=== PATIENT | male | born 1945 | race Caucasian/White ===

== ENCOUNTER 2017-01-24 14:40 | Inpatient (IN) | payer MEDICARE, BC ==
--- NOTE | 2017-01-24 15:25 | CT ---
CT BRAIN PERFORMED WITHOUT CONTRAST ENHANCEMENT: History: Altered mental status. FINDINGS: There is marked generalized ventricular and sulcal prominence. There is decreased attenuation of the periventricular white matter. There are no signs of intracerebral hemorrhage or extraaxial fluid michelle ections. Mastoid air cells are clear. There is some mild ethmoid air cell mucosal disease. IMPRESSION: No acute intracranial abnormalities. POS: [facility]
[2017-01-24 15:39] LABS: #Eosinphils 0.1 thou/uL (0.0-0.7); #Lymphocytes 1.6 thou/uL (1.20-3.40); #Monocytes 0.3 thou/uL (0.11-0.59); #Neutrophils 2.9 thou/uL (1.40-6.50); %Basophils 0.5 % (0.0-1.0); %Eosinophils 1.8 % (0.0-10.0); %Lymphocytes 31.9 % (21.0-51.0); Hematocrit 49.2 % (42.0-52.0); Mean Platelet Volume 7.7 fL (7.4-10.4); Red Blood Cell (RBC) Count 4.99 mill/uL (4.70-6.10); White Blood Cell (WBC) Count 4.9 thou/uL (4.8-10.8)
[2017-01-24 15:50] LABS: Prothrombin Time 20.2 SEC (12.0-14.7)
[2017-01-24 15:51] LABS: PTT 35.5 SEC (22.9-36.1)
[2017-01-24 15:59] LABS: ALT (SGPT) 22 U/L (8-55); AST (SGOT) 22 U/L (5-34); Alkaline Phosphatase 53 U/L (40-150); Anion Gap 13 mmol/L (10-20); BUN (Urea Nitrogen) 13 mg/dL (8.4-25.7); Bilirubin, Total 1.4 mg/dL (0.2-1.2); CK (CPK) 40 U/L (30-200); Calc. Creatinine Clearance 0 mL/min (70-130); Calcium 9.3 mg/dL (7.8-10.44); Carbon Dioxide 21 mmol/L (23-31); Chloride 106 mmol/L (98-107); Estimated GFR-MDRD Greater than 90; Globulin 2.7 g/dL (2.4-3.5)
[2017-01-24 16:03] LABS: Troponin I Less than 0.010 ng/mL (< 0.028)
[2017-01-24] MEDS ORDERED: Ondansetron HCl/PF 4 MG/2 ML Vial IVP PRN (20:01)
[2017-01-24] MEDS ORDERED: Acetaminophen 325 MG TAB PO PRN ×2 (20:01→20:24)
[2017-01-24] MEDS ORDERED: Sodium Chloride 0.9% 1,000 ML IV SCH (20:01)
[2017-01-24] MEDS ORDERED: Ondansetron ODT 4 MG TAB SL PRN (20:01)
[2017-01-24] MEDS ORDERED: Dextrose 50% Abboject 50 ML SYRINGE SLOW IVP PRN (20:24)
[2017-01-24] MEDS ORDERED: Dextrose 5% in Water 1,000 ML IV PRN (20:24)
[2017-01-24] MEDS ORDERED: Mag-Al 1200 mg/1200 mg/30 ML UDCUP PO PRN (20:24)
[2017-01-24] MEDS ORDERED: HumaLOG 300 UNITS/3 ML VIAL SC PRN (20:24)
[2017-01-24] MEDS ORDERED: Warfarin Sodium 5 MG TAB PO SCH (20:45)
[2017-01-24 21:00] VITALS: BMI 29.3
[2017-01-24] MEDS ORDERED: INSULIN DETEMIR SC SCH (21:00)
[2017-01-24] MEDS ORDERED: ADMIXTURE FEE SC SCH (21:00)
--- NOTE | 2017-01-24 21:09 | HP ---
PRIMARY CARE PHYSICIAN: Ha Hsu MD NEUROLOGIST: Kurtis Hernandez MD CHIEF COMPLAINT: Slurred speech. HISTORY OF PRESENT ILLNESS: Mr. Hernandez is a pleasant 71-year-old gentleman who was brought in by his due to slurred speech and dysarthria. The patient is , but however, he does not live wi th his . She lives close by and usually checks on him just once a day. The history is taken monique sudhir from the patient's that the patient has some degree of confusion in addition to the new d ysarthria. She says that he was found today by his stepdaughter and she noticed that he was not talk ing clearly, this was around 12:30 this afternoon. The day prior, he was in his usual state. She sa ys that about a month ago, she was concerned about him and took him to see his primary care physician because he seemed to be confused. He was repeating the same thing over and over again, he thought t hat he was confused about the holiday coming up and for this reason. She took him to see Dr. Hsu . He had some lab work on him and noticed that his INR was 1 when he should be on Coumadin daily for a hereditary clotting disorder that he has. For this reason, he was sent to have an MRI and then se nt to see Dr. Hernandez. According to the patient's , the MRI showed numerous infarcts and he was then sent to have a carotid Doppler, which showed some plaque, but no significant lesions. During th is time, he has continued to remain confused off and on. She believes that he has not been taking hi s medications and that is why his INR was subtherapeutic and on today, she noticed the slurred speech was noted, which is a new finding. He has had no motor weakness or deficits during this occasion ov er the past month. Otherwise, no additional history is obtainable. REVIEW OF SYSTEMS: Also unobtainable due to the patient's dysarthria and unreliable history. 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 PAST SURGICAL HISTORY: Significant for left ankle surgery as well as right knee surgery. SOCIAL HISTORY: He is , but he does not live with his . He is a former smoker, denies an y alcohol use. FAMILY HISTORY: Significant for coronary artery disease in his father and he says his father has the blood-clotting disorder as well as 4/5 of his siblings. ALLERGIES: PENICILLIN. CURRENT MEDICATIONS: Aspirin 81 mg daily, metformin 850 mg t.i.d., pravastatin 20 mg daily, vitamin D3 of 5000 units daily, Jantoven 5 mg daily. PHYSICAL EXAMINATION: GENERAL: He is alert and oriented. VITAL SIGNS: His blood pressure is 131/80, heart rate 96, respiratory rate of 18. He is afebrile. HEENT: Pupils are equal, round, and reactive. Extraocular muscles are intact. Sclerae are anicteri c. Throat, there is no erythema, although he has quite a bit of whitish coating on his tongue. NECK: There is no adenopathy, no bruits. LUNGS: Clear. There is no wheezing, no rales. CARDIOVASCULAR: He has a normal S1 and S2. I do not appreciate S3 or S4. No murmurs, clicks, no ru bs. ABDOMEN: Soft, it is nontender, nondistended. Positive for bowel sounds. No rebound, no guarding. EXTREMITIES: There is no edema. NEUROLOGIC: He appears to have just a very mild right facial droop. He has dysarthria, his speech i s barely intelligible. His muscle strength is 5/5 in both his upper and lower extremities with sligh t weakness in the left lower extremity and he has muscle atrophy in the left lower extremity from abo ut the calf down. LABORATORY AND DIAGNOSTIC DATA: CT scan of the brain was negative for any acute abnormalities. His sodium was 136, potassium 3.9, chloride is 106, CO2 is 21, BUN of 13, creatinine 0.8, glucose is 93. White blood cell count 4.9, hemoglobin 16.1, hematocrit is 49.2, platelet count is 192. INR was 1.7 . ASSESSMENT AND PLAN: 1. This is a 71-year-old gentleman who presents to the emergency room with dysarthria, this was note d around 12:30, it is unclear exactly when it started. It persists now, which is about 1900 hours wh en I am seeing the patient. This likely represents an acute infarct, however, we will need an MRI in order to determine this. We will also consult his neurologist for further recommendations. He has already had a carotid Doppler recently; therefore, this will not be repeated; however, we will get an echocardiogram. We will monitor him on telemetry to see if he has any atrial fibrillation. 2. History of a clotting disorder. He has a subtherapeutic INR. We will restart his Coumadin and t itrate. Due to some of the new mental confusion and concerned that the patient is noncompliant with his medications. We will consult case management to see if home health would be an option with bill nichole to helping the patient with his home medications. 3. For diabetes mellitus, he is on metformin. We will go ahead and hold the metformin for now and p lace him on a sliding scale as well as long-acting insulin until his workup is complete. Otherwise, we will also start him on deep venous thrombosis and gastrointestinal prophylaxis.
[2017-01-24] MEDS: Atorvastatin Calcium 20 MG TAB PO SCH (22:15)
[2017-01-24] MEDS: Famotidine 20 MG TAB PO SCH (22:15)
[2017-01-25 05:54] LABS: #Eosinphils 0.1 thou/uL (0.0-0.7); #Lymphocytes 1.5 thou/uL (1.20-3.40); #Monocytes 0.5 thou/uL (0.11-0.59); #Neutrophils 6.1 thou/uL (1.40-6.50); %Basophils 0.3 % (0.0-1.0); %Eosinophils 0.8 % (0.0-10.0); %Lymphocytes 18.5 % (21.0-51.0); %Monocytes 6.1 % (0.0-10.0); Hematocrit 45.6 % (42.0-52.0); Mean Platelet Volume 7.5 fL (7.4-10.4); Prothrombin Time 22.8 SEC (12.0-14.7); Red Blood Cell (RBC) Count 4.61 mill/uL (4.70-6.10); White Blood Cell (WBC) Count 8.2 thou/uL (4.8-10.8)
[2017-01-25 06:00] LABS: Anion Gap 11 mmol/L (10-20); BUN (Urea Nitrogen) 15 mg/dL (8.4-25.7); Calc. Creatinine Clearance 101 mL/min (70-130); Calcium 8.9 mg/dL (7.8-10.44); Carbon Dioxide 23 mmol/L (23-31); Chloride 107 mmol/L (98-107); Cholesterol 161 mg/dl (< 200 Desired); Estimated GFR-MDRD Greater than 90; LDL Cholesterol, Calculated 106 mg/dL
[2017-01-25] MEDS ORDERED: Aspirin 81 mg Enteric Coated Tablet PO SCH ×2 (09:00→11:45)
[2017-01-25] MEDS ORDERED: FLU VACC TS2017-18 (>65YR) 0.5 ML SYRINGE IM ONE (09:00)
[2017-01-25] MEDS: Famotidine 20 MG TAB PO SCH ×2 (09:16→21:32)
[2017-01-25] MEDS ORDERED: Famotidine 20 MG TAB PO SCH (11:45)
--- NOTE | 2017-01-25 12:47 | PDOC.PN ---
- Subjective Encounter Start Date: 01/25/17 Encounter Start Time: 12:45 Mr. Hernandez was seen today in follow-up of TIA vs. CVA. He does not have any new complaints. He continues to have dysarthria, and the facial droop ( right) is more pronounced today. - Objective Resuscitation Status: Resuscitation Status FULL:Full Resuscitation MAR Reviewed: Yes Vital Signs & Weight: Vital Signs (12 hours) Temp Pulse Pulse Pulse Resp BP BP 01/25/17 11:30 98.4 F 59 L 16 01/25/17 09:40 61 78 141/71 H 116/83 01/25/17 07:30 98.9 F 82 16 01/25/17 07:27 98.6 F 59 L 16 01/25/17 04:22 98.6 F 59 L 16 BP Pulse Ox 01/25/17 11:30 106/66 98 01/25/17 09:40 01/25/17 07:30 126/77 97 01/25/17 07:27 01/25/17 04:22 132/78 93 L Weight Weight 183 lb 12.8 oz I&O: 01/24/17 01/25/17 01/26/17 06:59 06:59 06:59 Intake Total 198 Balance 198 Result Diagrams: 01/25/17 05:25 01/25/17 05:25 Additional Labs: Accuchecks 01/25/17 01/25/17 01/24/17 10:51 06:08 21:42 POC Glucose 92 101 94 Phys Exam - Physical Examination HEENT: PERRLA Respiratory: no wheezing, no rales, no rhonchi, clear to auscultation bilateral Cardiovascular: RRR, no significant murmur Gastrointestinal: soft, non-tender, positive bowel sounds Musculoskeletal: no edema Dysarthria, and right facial droop Dx/Plan (1) Dysarthria Code(s): R47.1 - DYSARTHRIA AND ANARTHRIA Status: Acute (2) Facial droop Code(s): R29.810 - FACIAL WEAKNESS Status: Acute (3) Diabetes mellitus type 2 in nonobese Code(s): E11.9 - TYPE 2 DIABETES MELLITUS WITHOUT COMPLICATIONS Status: Acute (4) Subtherapeutic anticoagulation Code(s): Z51.81 - ENCOUNTER FOR THERAPEUTIC DRUG LEVEL MONITORING; Z79.01 - [place] (CURRENT) USE OF ANTICOAGULANTS Status: Acute - Plan * Dysarthria and facial droop- awaiting MRI results * Dyslipidemia- mild- but will add Lipitor * INR is now 1.9- continue coumadin, and will monitor the trend and adjust as needed * DM- blood glucose is controlled * Await further evaluation from Dr. Hernandez.
--- NOTE | 2017-01-25 14:03 | MRI ---
BRAIN MRI WITHOUT CONTRAST: 01/25/2017 HISTORY: Slurred speech and altered mental status. COMPARISON: None. TECHNIQUE: Multiplanar, multisequence MR imaging of the brain is obtained without contrast. FINDINGS: There is an area of restricted diffusion, consistent with acute infarction, involving the periventric ular and deep white matter, adjacent to the mid body of the left lateral ventricle, measuring up to 1 .7 x 2 cm. The gradient echo imaging demonstrates no evidence for intracranial hemorrhage. There is extensive periventricular deep and subcortical white matter T2 and FLAIR hyperintensity, evidence of severe small vessel disease. The arterial flow voids at the axial level of the skull base appear patent. The imaged paranasal sin uses/mastoid air cells are grossly unremarkable. The orbits and globes demonstrate a grossly unremar kable appearance. There is moderate diffuse cerebral volume loss. IMPRESSION: Cerebral volume loss and severe small vessel disease with an area of acute infarction involving the l eft periventricular and deep white matter in the frontal region, as above. No associated intracrania l hemorrhage. POS: [facility]
[2017-01-25] MEDS: Warfarin Sodium 5 MG TAB PO SCH (17:48)
[2017-01-25] MEDS: Atorvastatin Calcium 20 MG TAB PO SCH (21:31)
[2017-01-25] MEDS: ADMIXTURE FEE SC SCH ×2 (21:32→21:44)
[2017-01-25] MEDS: INSULIN DETEMIR SC SCH ×2 (21:32→21:44)
--- NOTE | 2017-01-25 23:13 | CON ---
DATE OF CONSULTATION: 01/25/2017 REFERRING PHYSICIAN: Dr. Walker Heredia. REASON FOR CONSULTATION: Dysarthria and confusion. HISTORY OF PRESENT ILLNESS: Mr. Hernandez is a pleasant 71-year-old male who has been concern ed for evaluation of dysarthria. History is obtained from patient's who was present at bedside. reports that she had went to go check on him yesterday and he was noted to have slurring of hi s speech. He was also noted to have right-sided facial droop. He does have baseline confusion from prior stroke; however, the slurring of the speech and right facial droop was new. He has a history o f hereditary clotting disorder, for which he is supposed to be on Coumadin. feels that he may n ot be compliant with medication as his level has been going up and down. PAST MEDICAL HISTORY: Significant for hypertension, hyperlipidemia, prior history of stroke, heredit lesley blood clotting disorder, history of diverticulosis, polio, diabetes, obstructive sleep apnea. PAST SURGICAL HISTORY: Significant for left ankle surgery and right knee surgery. SOCIAL HISTORY: He is a former smoker. He denies alcohol use or illicit drug use. He is , b ut lives alone. FAMILY HISTORY: Significant for coronary artery disease in his father as well as blood clotting diso rder. CURRENT MEDICATIONS: Please review MAR. ALLERGIES: Include PENICILLIN. REVIEW OF SYSTEMS: As mentioned in the HPI, otherwise negative. PHYSICAL EXAMINATION: VITAL SIGNS: Blood pressure of 114/58, pulse of 61, temperature of 98.4, respirations of 16, O2 sats of 97% on room air. GENERAL: Well-developed, well-nourished male in no apparent distress. RESPIRATORY: Clear to auscultation bilaterally. CARDIOVASCULAR: Regular rate and rhythm. NEUROLOGIC: Mental status: The patient is awake, alert, oriented x2. Speech and language, mildly d ysarthric speech noted. There is some expressive aphasia noted. Cranial nerves: Pupils are 3 mm an d reactive. Visual rangel are intact. External muscle movements are intact. No nystagmus noted. N o ptosis noted. There is a right facial droop noted. Tongue and uvula are midline. Motor exam show ed normal tone and bulk with 5/5 strength in both upper and lower extremities. Sensory: Sensation i s intact and symmetric. Deep tendon reflexes 2+ reflexes in both upper and lower extremities. Vinnie ski: Plantar responses flexion bilaterally. Coordination intact to [id number] and finger ta pping bilaterally. LABORATORY DATA: Reviewed, which included CBC, coag panel, CMP, lipid profile, CPK, CK-MB, troponin, which is significant for PT of 20.2, INR 1.7 on arrival. Total cholesterol 161, LDL of 106, triglyc erides of 136, HDL 28, otherwise unremarkable. IMAGING STUDIES: MRI brain without contrast was reviewed, which showed acute left periventricular an d deep white matter in the region of the frontal lobe. Recently carotid Dopplers was done on 017, which showed no hemodynamically significant stenosis. Echocardiogram results are pending. IMPRESSION: 1. Acute left middle cerebral artery distribution ischemic infarct. 2. Hypertension. 3. Diabetes. 4. Hyperlipidemia. 5. Hereditary clotting disorder. ASSESSMENT AND PLAN: Mr. Hernandez is a pleasant 71-year-old male who presented with the epis ode of dysarthria and confusion. He is found to have acute left middle cerebral artery distribution ischemic infarct. At this time, I have advised him to continue him on aspirin 81 mg daily along with Coumadin with therapeutic INR with a goal of 2.5-3. Continue PT, OT, speech therapy. If the patien t is okay from rehabilitation perspective, he is okay to be discharged [facility]. Thank you for your consultation.
[2017-01-26 05:45] LABS: Prothrombin Time 26.7 SEC (12.0-14.7)
[2017-01-26] MEDS: Aspirin 81 mg Enteric Coated Tablet PO SCH (09:01)
[2017-01-26] MEDS: Famotidine 20 MG TAB PO SCH ×2 (09:01→21:15)
--- NOTE | 2017-01-26 14:27 | PDOC.PN ---
- Subjective Encounter Start Date: 01/26/17 Encounter Start Time: 14:25 Mr. Hernandez was seen today in follow-up for acute CVA. He is aphasic and dysarthric and as such unable to express his concerns. His is not currently at the bedside. - Objective MAR Reviewed: Yes Vital Signs & Weight: Vital Signs (12 hours) Temp Pulse Pulse Pulse Resp BP BP 01/26/17 11:55 58 L 54 L 150/78 H 149/80 H 01/26/17 11:18 97.6 F 59 L 16 01/26/17 08:09 98.4 F 57 L 16 01/26/17 07:28 98.4 F 57 L 16 01/26/17 03:38 98 F 79 16 BP Pulse Ox 01/26/17 11:55 01/26/17 11:18 149/80 H 95 01/26/17 08:09 01/26/17 07:28 119/64 94 L 01/26/17 03:38 125/78 97 Weight Weight 180 lb 3.2 oz I&O: 01/25/17 01/26/17 01/27/17 06:59 06:59 06:59 Intake Total 400 Balance 400 Result Diagrams: 01/25/17 05:25 01/25/17 05:25 Additional Labs: Accuchecks 01/26/17 01/26/17 01/25/17 10:49 06:01 21:02 POC Glucose 92 95 103 01/25/17 16:58 POC Glucose 78 Phys Exam - Physical Examination HEENT: PERRLA Respiratory: no wheezing, no rales, clear to auscultation bilateral + occasional rhonchi Cardiovascular: RRR Gastrointestinal: soft, non-tender, positive bowel sounds Musculoskeletal: no edema Dx/Plan (1) Dysarthria Code(s): R47.1 - DYSARTHRIA AND ANARTHRIA Status: Acute (2) Facial droop Code(s): R29.810 - FACIAL WEAKNESS Status: Acute (3) Diabetes mellitus type 2 in nonobese Code(s): E11.9 - TYPE 2 DIABETES MELLITUS WITHOUT COMPLICATIONS Status: Acute (4) Subtherapeutic anticoagulation Code(s): Z51.81 - ENCOUNTER FOR THERAPEUTIC DRUG LEVEL MONITORING; Z79.01 - FPC (CURRENT) USE OF ANTICOAGULANTS Status: Acute - Plan * Acute Left Periventricular CVA- patient has dysarthria, and dysphagia, and some gait, and endurance deficiencies as well * Inpatient Rehab is recommended * Hereditary Clotting disorder- ? Antithrombin III- his INR is now within therapeutic range * Continue low dose aspirin, and statin * HTN- blood pressure is stable.
[2017-01-26] MEDS: Warfarin Sodium 5 MG TAB PO SCH (17:08)
[2017-01-26] MEDS: INSULIN DETEMIR SC SCH (21:14)
[2017-01-26] MEDS: ADMIXTURE FEE SC SCH (21:14)
[2017-01-26] MEDS: Atorvastatin Calcium 20 MG TAB PO SCH (21:15)
[2017-01-27 05:52] LABS: Prothrombin Time 28.5 SEC (12.0-14.7)
[2017-01-27] MEDS: Aspirin 81 mg Enteric Coated Tablet PO SCH (09:55)
[2017-01-27] MEDS: Famotidine 20 MG TAB PO SCH (09:55)
--- NOTE | 2017-01-27 13:25 | PDOC.PN ---
- Subjective Encounter Start Date: 01/27/17 Encounter Start Time: 13:23 Mr. Hernandez was seen today in follow-up of acute CVA. He does not have any complaints today - Objective MAR Reviewed: Yes Vital Signs & Weight: Vital Signs (12 hours) Temp Pulse Resp BP Pulse Ox 01/27/17 11:45 98.7 F 61 18 139/88 95 01/27/17 08:00 98.6 F 69 16 01/27/17 07:32 98.6 F 69 16 164/85 H 93 L 01/27/17 03:19 98.5 F 54 L 14 118/70 92 L Weight Weight 180 lb 3.2 oz I&O: 01/26/17 01/27/17 01/28/17 06:59 06:59 06:59 Intake Total 400 500 240 Balance 400 500 240 Result Diagrams: 01/25/17 05:25 01/25/17 05:25 Additional Labs: Accuchecks 01/27/17 01/27/17 01/26/17 10:55 05:31 16:52 POC Glucose 89 84 93 Phys Exam - Physical Examination HEENT: PERRLA Respiratory: no wheezing, no rales, no rhonchi, clear to auscultation bilateral Cardiovascular: RRR, no significant murmur, no rub Gastrointestinal: soft, non-tender, positive bowel sounds Musculoskeletal: no edema + dysarthria, and aphasia Dx/Plan (1) Dysarthria Code(s): R47.1 - DYSARTHRIA AND ANARTHRIA Status: Acute (2) Facial droop Code(s): R29.810 - FACIAL WEAKNESS Status: Acute (3) Diabetes mellitus type 2 in nonobese Code(s): E11.9 - TYPE 2 DIABETES MELLITUS WITHOUT COMPLICATIONS Status: Acute (4) Subtherapeutic anticoagulation Code(s): Z51.81 - ENCOUNTER FOR THERAPEUTIC DRUG LEVEL MONITORING; Z79.01 - GENETICS NURSE (CURRENT) USE OF ANTICOAGULANTS Status: Acute - Plan * Acute CVA- patient is clinically stable. * HTN- blood pressure is a bit elevated, but overall stable * He can be transferred to inpatient Rehab today
--- NOTE | 2017-01-27 14:01 | DIS ---
DATE OF ADMISSION: 01/25/2017 DATE OF DISCHARGE: 01/27/2017 PRIMARY CARE PHYSICIAN: Dr. Ha Hsu. DISCHARGE DISPOSITION: To inpatient rehabilitation. DISCHARGE DIAGNOSES: 1. Acute left periventricular infarct. 2. Hypertension. 3. Diabetes mellitus type 2. 4. Hyperlipidemia. 5. Some type of hereditary clotting disorder, which they think could be antithrombin 3. 6. Obstructive sleep apnea. DISCHARGE MEDICATIONS: Include Warfarin 5 mg daily, Folgard 1 tablet daily, metformin 850 mg t.i.d. The patient was changed to Lipitor 20 mg at bedtime, and aspirin 81 mg daily. He is no longer on pr avastatin. PROCEDURES DONE DURING ADMISSION: The patient had a CT scan of the brain showing no acute intracrani al abnormalities. Had an MRI of the brain showing some cerebral volume loss and some severe small ve ssel disease with an area of acute infarction involving the left periventricular and deep white matte r in the frontal region. There was no associated hemorrhage. The patient had an echocardiogram and the ejection fraction was estimated at 55%-60%. The patient had a carotid Doppler on 01/01 of this y ear and there was some arteriosclerosis, but no flow limiting disease. CODE STATUS: FULL CODE. ALLERGIES: PENICILLIN. HOSPITAL COURSE: Mr. Hernandez is a pleasant 71-year-old gentleman who was found by family in his house . His speech was slurred and he seemed to be slightly weaker on his left side than he had been prior . He was brought in to the emergency room, initially placed in observation and ultimately found to h ave an acute cerebrovascular accident in the left periventricular matter in the frontal region. He h ad an echocardiogram, which was essentially negative and had carotid Dopplers previously, which were negative and other than some arthrosclerotic plaque, he has a history of some type of hereditary clot ting disorder. His INR was subtherapeutic and it is unclear whether or not he is compliant with medi cations. He was started back on his regular dose of Coumadin and his INR at the time of discharge wa s 2.6. He is recommended to keep his INR between 2.5 and 3 due to his clotting disorder. He was bert luated by Neurology during his hospital course and other than increasing the INR and placing him on a stronger statin, physical therapy and speech therapy, no other changes were made. The patient is be ing transferred to the inpatient rehabilitation unit for further treatment.
[2017-01-27 15:48] VITALS: BP 124/86; TEMP 98.6
[2017-01-27] MEDS: Warfarin Sodium 5 MG TAB PO SCH (16:19)
== END 2017-01-27 17:30 | DRG 65 ==
LOC: ERS 14:40 → 2SE 17:34 → OBSVTOIN 01-25 14:37
PROVIDERS: ADMIT Internal Medicine; ATTEND Internal Medicine
DX: I63.9 Cerebral infarction, unspecified (principal); D68.59 Other primary thrombophilia; E11.9 Type 2 diabetes mellitus without complications; I10 Essential (primary) hypertension; E78.5 Hyperlipidemia, unspecified; G47.33 Obstructive sleep apnea (adult) (pediatric); R47.1 Dysarthria and anarthria; R29.810 Facial weakness; I69.318 Other symptoms and signs involving cognitive functions following cerebral infarction; Z87.891 Personal history of nicotine dependence
CPT/HCPCS: 36415; 36416; 70450; 70551; 80048; 80053; 80061; 82550; 82553; 84484; 85025; 85610; 85730; 86850; 86900; 86901; 90471; 90682; 93005; 93306; G0008; G8978-GP-CJ; G8978-GP-CL; G8979-GP-CJ; G8980-GP-CJ; G8987-GO-CJ; G8988-GO-CH; G8996-GN-CJ; G8997-GN-CI; J1815; J2405; Q2036

== ENCOUNTER 2017-10-09 05:06 | Inpatient (IN) | payer MEDICARE, BC ==
[2017-10-09] MEDS ORDERED: Acetaminophen 500 MG TAB ONE (05:50)
[2017-10-09 06:08] LABS: #Lymphocytes 0.9 thou/uL (1.20-3.40); #Monocytes 0.9 thou/uL (0.11-0.59); #Neutrophils 10.5 thou/uL (1.40-6.50); %Basophils 0.3 % (0.0-1.0); %Eosinophils 0.2 % (0.0-10.0); %Neutrophils 85.6 % (42.0-75.0); Hemoglobin 13.7 g/dL (14.0-18.0); Mean Corpuscular HGB CONC 33.7 g/dL (32.0-36.0); Mean Corpuscular Volume 97.7 fL (78.0-98.0); Mean Platelet Volume 7.8 fL (7.4-10.4); Platelet Count 190 thou/uL (130-400); RBC Distribution Width 12.7 % (11.5-14.5); Red Blood Cell (RBC) Count 4.16 mill/uL (4.70-6.10); White Blood Cell (WBC) Count 12.2 thou/uL (4.8-10.8)
[2017-10-09 06:16] LABS: Bilirubin Unable to Interpret (Negative); Clarity Turbid (Clear); Glucose, Urine (Dipstick) Unable to Interpret mg/dL (Negative); Leukocyte Unable to Interpret (Negative); Nitrite Unable to Interpret (Negative); Protein, Urine (Dipstick) Unable to Interpret mg/dL (Neg-Trace); Specific Gravity, Urine 1.018 (1.002-1.036); Urobilinogen UNABLE TO INTERPRET mg/dL (0.2-1.0); pH, Urine 8.5 (5.0-9.0)
[2017-10-09 06:17] LABS: Bacteria/HPF 3+ HPF (None Seen); Blood, Urine Unable to Interpret (Negative); RBC/HPF GREATER THAN 50-TNTC HPF (0-3); Squamous Epithelial 0-3 HPF (0-3)
[2017-10-09 06:20] LABS: INR-International Normal Ratio 1.8; PTT 37.3 SEC (22.9-36.1); Prothrombin Time 21.1 SEC (12.0-14.7)
[2017-10-09] MEDS ORDERED: cefTRIAXone\\ROCEPHIN 1 GM VIAL ONE (06:20)
[2017-10-09 06:32] LABS: ALT (SGPT) 22 U/L (8-55); AST (SGOT) 27 U/L (5-34); Albumin 4.3 g/dL (3.4-4.8); Alkaline Phosphatase 54 U/L (40-150); Anion Gap 17 mmol/L (10-20); BUN (Urea Nitrogen) 20 mg/dL (8.4-25.7); Bilirubin, Total 0.9 mg/dL (0.2-1.2); Calc. Creatinine Clearance 0 mL/min (70-130); Calcium 9.6 mg/dL (7.8-10.44); Carbon Dioxide 18 mmol/L (23-31); Chloride 106 mmol/L (98-107); Estimated GFR-MDRD Greater than 90; Globulin 2.4 g/dL (2.4-3.5); Glucose 133 mg/dL (83-110); Protein, Total 6.7 g/dL (5.8-8.1); Sodium 137 mmol/L (136-145)
--- NOTE | 2017-10-09 09:29 | RAD ---
AP VIEW CHEST: Date: 10/09/17 HISTORY: Altered mental status. FINDINGS: Comparison made to previous exam from 02/02/13. AP view of chest demonstrates the lungs to be well aerated. No evidence of active intrathoracic disea se seen. No evidence of effusions, pneumonia, or pneumothorax seen. IMPRESSION: Unremarkable AP view of chest. POS: [facility]
[2017-10-09 10:04] LABS: Lactic Acid 2.4 mmol/L (0.5-2.2)
[2017-10-09] MEDS ORDERED: Dextrose 5% in Water 1,000 ML IV PRN (10:08)
[2017-10-09] MEDS ORDERED: Dextrose 50% Abboject 50 ML SYRINGE SLOW IVP PRN (10:08)
[2017-10-09] MEDS ORDERED: HumaLOG 300 UNITS/3 ML VIAL SC PRN (10:08)
--- NOTE | 2017-10-09 12:21 | HP ---
CHIEF COMPLAINT: Altered mental status. 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 The patient is on long-term anticoagulation therapy for that. The patient had a series of strokes including December and January of 2017. At that time, the patient had increasing debility. He had carotid Dopplers which showed some atherosclerotic disease, but not necessarily occlusive. His CT s can at that time showed some marked generalized ventricular and sulcal prominence. The patient left that admission in January and went to a rehab facility. The patient then went to a shelter [facility]. Patient appears to have some longstanding dementia and some degree of some expressive aphasia , but it sounds like more of an issue with phonation and volume that it is actual generation of speec h. The patient was noted at his shelter today to have temperature of 100, some altered mental s tatus with decreased mentation and slight agitation. I called patient's and subsequently prepar ing him for transfer to the hospital and they noted that he had some bloody urine that was also foul smelling. The patient's review of system is not obtainable due to his altered mental status. His wi fe is not aware of any problems. She says he has been eating and drinking fairly normally. He is no t on any diet modifications and is a self-feeder. PAST MEDICAL HISTORY: Notable for the history of the postpolio syndrome with chronic left lower extr emity debility. She reports he has always had an abnormal gait as a result of that. He has had cere brovascular accidents including December and January of 2017 resulting in some dementia and generali zed debility. The patient has subsequently been wheelchair bound. 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 reports he has severe obstructive sleep apnea that has been fairly lifelong. He has not been using a CPAP machine. She reports he has an old one, but was supposed to get a repeat sleep st udy in January, but the stroke pushed that back. He did get another sleep study, but Dr. Bennett knott has been out of the country therefore has had no followup on that as of yet. PAST SURGICAL HISTORY: History of left ankle surgery, right knee surgery. SOCIAL HISTORY: The patient is . He lives in a shelter setting. He was a former smoker , but after his stroke in January, he did not remember that he was a smoker and has not smoked since . No history of alcohol use. FAMILY HISTORY: Coronary artery disease in his father. Apparently, he has several siblings with thi s shared clotting disorder and believes his father had it as well based on the records in the compute r. ALLERGIES: PENICILLIN. CURRENT MEDICATIONS: Metformin 850 p.o. t.i.d., Coumadin 5 mg every day, Folgard 1 p.o. daily, prava statin 40 mg day, Lipitor 20 every day, aspirin 81 mg every day. PHYSICAL EXAMINATION: VITAL SIGNS: BP 151/97, pulse was 110, respirations 14, O2 sat 98% on room air. GENERAL APPEARANCE: Age appropriate male in no distress, awake and alert. He is not oriented. He i s verbally interactive and will answer with one word questions for the most part. HEENT: PERRL. No OP lesions. TMs are normal. NECK: Supple and symmetric. HEART: Regular rate and rhythm without murmurs, gallops or rubs. LUNGS: Clear to auscultation bilaterally with good chest wall expansion and air exchange. ABDOMEN: Soft, nontender, nondistended, positive bowel sounds, no masses, no organomegaly. EXTREMITIES: Warm and dry without edema. There is atrophy of the left lower extremity. There is a surgical scar inferior to the left lateral malleolus. LABORATORY DATA AND IMAGING DATA: White count 12.2, hemoglobin 13.7. PTT is 37.1, INR 1.8. Sodium 137, potassium 4.0, chloride 106, CO2 18, BUN 20, creatinine 0.76, glucose 133. Lactic acid is 2.6, calcium 9.6. LFTs normal. Urinalysis is red with turbid appearance and a specific gravity of 1.018 and a pH of 8.5. There are greater than too numerous to count red blood cells, 7-10 white blood cell s and 3+ bacteria. The urine has a foul odor and noted on the pad is some red tint. The remainder o f the dipstick was not interpretable because of discoloration. Chest x-ray appears normal. ASSESSMENT AND PLAN: 1. Sepsis secondary to urinary tract infection. The patient has received vancomycin and Rocephin in the emergency department. I will continue with the Rocephin. He has had some fluid resuscitation a nd his vital signs at this point are generally stable and his tachycardia is improving. We will foll ow up on the urine culture. 2. History of coagulation disorder. We will continue with the patient's normal Coumadin dose. The goal would be 2.5 to 3. 3. Diabetes mellitus. We will continue with his usual home medications along with Accu-Cheks and sl iding scale insulin. 4. History of hypertension, stable, home medications. 5. History of hyperlipidemia, stable. Continue home medications. 6. History of obstructive sleep apnea. The patient has not been treated for this. His reports that his snoring has vastly improved from where it was previously. His doctor will be back in town on Wednesday and it may be possible to get the results to determine appropriate settings at that time. DISPOSITION: This patient is a full code. His would be his surrogate decision maker should braulio t become necessary and patient's primary care provider is Dr. Ha Hsu.
[2017-10-09] MEDS: cefTRIAXone\\ROCEPHIN 1 GM in Sodium Chloride 0.9% 100 ML IVPB SCH (15:12)
[2017-10-09 15:14] VITALS: BMI 27.2
[2017-10-09] MEDS: Sodium Chloride 0.9% 1,000 ML IV SCH (15:54)
[2017-10-09] MEDS ORDERED: Ketorolac Tromethamine 30 MG/ML VIAL IVP PRN (18:05)
[2017-10-09] MEDS: Acetaminophen 325 MG TAB PO PRN (18:16)
[2017-10-10] MEDS: Sodium Chloride 0.9% 1,000 ML IV SCH ×2 (05:11→17:55)
[2017-10-10 06:09] LABS: Anion Gap 11 mmol/L (10-20); BUN (Urea Nitrogen) 13 mg/dL (8.4-25.7); Calc. Creatinine Clearance 100 mL/min (70-130); Calcium 8.6 mg/dL (7.8-10.44); Carbon Dioxide 20 mmol/L (23-31); Chloride 107 mmol/L (98-107); Estimated GFR-MDRD Greater than 90; Glucose 100 mg/dL (83-110); Potassium 3.6 mmol/L (3.5-5.1); Sodium 134 mmol/L (136-145)
[2017-10-10 06:38] LABS: Band 17 % (5-11); Hemoglobin 12.7 g/dL (14.0-18.0); Lymphocytes 9 % (21-51); MDiff Complete? YES; Mean Corpuscular HGB CONC 35.3 g/dL (32.0-36.0); Mean Corpuscular Hemoglobin 34.2 pg (27.0-31.0); Mean Corpuscular Volume 96.9 fL (78.0-98.0); Mean Platelet Volume 7.3 fL (7.4-10.4); Monocytes 10 % (0-10); Neutrophil 64 % (42-75); Platelet Count 179 thou/uL (130-400); RBC Distribution Width 12.6 % (11.5-14.5); Red Blood Cell (RBC) Count 3.73 mill/uL (4.70-6.10); White Blood Cell (WBC) Count 13.9 thou/uL (4.8-10.8)
[2017-10-10] MEDS: cefTRIAXone\\ROCEPHIN 1 GM in Sodium Chloride 0.9% 100 ML IVPB SCH (10:56)
[2017-10-10] MEDS: Acetaminophen 325 MG TAB PO PRN (12:28)
--- NOTE | 2017-10-10 12:46 | PDOC.PN ---
- Subjective Encounter Start Date: 10/10/17 Encounter Start Time: 09:15 Denies complaint. Modestly verbal. - Objective Resuscitation Status: Resuscitation Status FULL:Full Resuscitation Vital Signs & Weight: Vital Signs (12 hours) Temp Pulse Resp BP Pulse Ox 10/10/17 12:22 101.4 F H 87 16 114/69 96 10/10/17 07:36 98.7 F 94 20 135/82 93 L 10/10/17 05:34 94 L 10/10/17 04:25 98.7 F 96 23 H 126/75 94 L Weight Weight 158 lb 12.8 oz I&O: 10/09/17 10/10/17 10/11/17 06:59 06:59 06:59 Intake Total 1471 Output Total 2350 Balance -879 Result Diagrams: 10/10/17 05:06 10/10/17 05:06 Additional Labs: Accuchecks 10/10/17 10/10/17 10/09/17 11:05 06:09 21:09 POC Glucose 143 H 100 93 10/09/17 17:39 POC Glucose 97 Phys Exam - Physical Examination Constitutional: NAD Respiratory: no wheezing, no rales, no rhonchi, clear to auscultation bilateral Cardiovascular: RRR, no significant murmur Gastrointestinal: soft, non-tender, no distention, positive bowel sounds Musculoskeletal: no edema Dementia. Dx/Plan (1) UTI (urinary tract infection) Status: Acute Comment: Had fever and hematuria. Chronic incontinence. Looks like Proteus. Continue Zosyn pending cultures. (2) Hematuria Code(s): R31.9 - HEMATURIA, UNSPECIFIED Status: Acute Comment: UTI while on anticoagulation. Had some clots noted when Dutta placed. Will consult Urology. (3) Coagulation defect, unspecified Code(s): D68.9 - COAGULATION DEFECT, UNSPECIFIED Status: Acute Comment: Hereditary coagulopathy requiring coumadin. (4) Multi-infarct dementia Code(s): F01.50 - VASCULAR DEMENTIA WITHOUT BEHAVIORAL DISTURBANCE Status: Acute - Plan * Continue broad spectrum abx until cultures and sensitivities are known.
[2017-10-11] MEDS: Sodium Chloride 0.9% 1,000 ML IV SCH ×2 (05:04→17:20)
[2017-10-11 06:17] LABS: INR-International Normal Ratio 1.4; Prothrombin Time 17.4 SEC (12.0-14.7)
[2017-10-11 06:21] LABS: #Eosinphils 0.1 thou/uL (0.0-0.7); #Lymphocytes 1.8 thou/uL (1.20-3.40); #Monocytes 0.8 thou/uL (0.11-0.59); #Neutrophils 10.8 thou/uL (1.40-6.50); %Basophils 0.3 % (0.0-1.0); %Lymphocytes 13.1 % (21.0-51.0); %Monocytes 6.2 % (0.0-10.0); %Neutrophils 79.5 % (42.0-75.0); Hemoglobin 12.2 g/dL (14.0-18.0); Mean Corpuscular HGB CONC 33.9 g/dL (32.0-36.0); Mean Corpuscular Hemoglobin 33.5 pg (27.0-31.0); Mean Corpuscular Volume 98.8 fL (78.0-98.0); Mean Platelet Volume 7.4 fL (7.4-10.4); Platelet Count 155 thou/uL (130-400); RBC Distribution Width 12.4 % (11.5-14.5); Red Blood Cell (RBC) Count 3.64 mill/uL (4.70-6.10); White Blood Cell (WBC) Count 13.5 thou/uL (4.8-10.8)
[2017-10-11 06:29] LABS: Anion Gap 13 mmol/L (10-20); BUN (Urea Nitrogen) 12 mg/dL (8.4-25.7); Calc. Creatinine Clearance 115 mL/min (70-130); Calcium 8.5 mg/dL (7.8-10.44); Carbon Dioxide 18 mmol/L (23-31); Chloride 106 mmol/L (98-107); Estimated GFR-MDRD Greater than 90; Glucose 87 mg/dL (83-110); Potassium 3.6 mmol/L (3.5-5.1); Sodium 133 mmol/L (136-145)
[2017-10-11] MEDS: cefTRIAXone\\ROCEPHIN 1 GM in Sodium Chloride 0.9% 100 ML IVPB SCH (09:20)
--- NOTE | 2017-10-11 10:10 | PDOC.PN ---
- Subjective Encounter Start Date: 10/11/17 Encounter Start Time: 10:07 Subjective: pleasantly confused - Objective Resuscitation Status: Resuscitation Status FULL:Full Resuscitation MAR Reviewed: Yes Vital Signs & Weight: Vital Signs (12 hours) Temp Pulse Resp BP Pulse Ox 10/11/17 07:26 98.3 F 66 18 126/76 97 10/11/17 03:48 99.6 F 89 19 133/84 96 Weight Weight 166 lb 8 oz I&O: 10/10/17 10/11/17 10/12/17 06:59 06:59 06:59 Intake Total 1471 1740 Output Total 2350 1325 Balance -879 415 Result Diagrams: 10/11/17 05:12 10/11/17 05:12 Additional Labs: Accuchecks 10/11/17 10/10/17 10/10/17 05:44 21:07 17:03 POC Glucose 85 102 92 10/10/17 11:05 POC Glucose 143 H Phys Exam - Physical Examination Constitutional: NAD Neck: no JVD Respiratory: clear to auscultation bilateral Cardiovascular: RRR, no significant murmur Gastrointestinal: soft, positive bowel sounds Musculoskeletal: no edema Dx/Plan (1) Sepsis Code(s): A41.9 - SEPSIS, UNSPECIFIED ORGANISM Status: Acute Qualifiers: Sepsis type: sepsis due to unspecified organism Qualified Code(s): A41.9 - Sepsis, unspecified organism (2) Coagulation defect, unspecified Code(s): D68.9 - COAGULATION DEFECT, UNSPECIFIED Status: Chronic Comment: Hereditary coagulopathy requiring coumadin. (3) Multi-infarct dementia Code(s): F01.50 - VASCULAR DEMENTIA WITHOUT BEHAVIORAL DISTURBANCE Status: Chronic (4) UTI (urinary tract infection) Status: Acute Qualifiers: Urinary tract infection type: site unspecified Comment: Had fever and hematuria. Chronic incontinence. Looks like Proteus. Continue Zosyn pending cultures. (5) Diabetes mellitus type 2 in nonobese Code(s): E11.9 - TYPE 2 DIABETES MELLITUS WITHOUT COMPLICATIONS Status: Acute - Plan still has leukocytosis- cont iv rocephin -: reinstitute warfarin, monitor INR -: OHA/ accu/ss -: move to medical * .
--- NOTE | 2017-10-11 10:11 | CON ---
DATE OF CONSULTATION: 10/11/2017 CONSULTING PHYSICIAN: Gal Ng. CONSULTED PHYSICIAN: Papo Duggan M.D. with Urology. REASON FOR CONSULTATION: Gross hematuria. HISTORY OF PRESENT ILLNESS: Mr. Hernandez is a 71-year-old white male who was admitted to the hospital for altered mental status, foul smelling urine and some bloody urination. He was brought into the [facility] and initially went to the ICU for presumed urosepsis. At that time during transfers and lawrence es of his incontinence, patient was noted to have almost continuous leakage of urine out of his bladd er which was bloody and also had a bad smell. A Dutta catheter was ordered and a 16-Croatian Dutta was placed, which released approximately 800 mL of grossly bloody urine. The hematuria has somewhat ely ared, but I was consulted for further assistance on hematuria. On my discussion with the patient, he is extremely altered at the current time, it is unclear whether this is his baseline or has acutely worsened given his hospitalization, but he is relatively nonverbal and is not really answering questi ons appropriately. There is no family at bedside. Most of the history is obtained from nursing staf f and the medical records. PAST MEDICAL HISTORY: 1. Postpolio syndrome with lower extremity debility. 2. Wheelchair confinement. 3. Dementia. 4. 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 5. Diverticulosis. 6. Multiple CVAs. 7. Obstructive sleep apnea. PAST SURGICAL HISTORY: 1. Left ankle surgery. 2. Right knee surgery. FAMILY HISTORY: Significant for coronary artery disease. SOCIAL HISTORY: The patient is , but lives in a long term. He is a former smoker, but has quit after a stroke in January. There is no reported history of alcohol abuse or illicit drug use. REVIEW OF SYSTEMS: A 12 point review of systems could not be obtained from the patient as he is rela tively nonverbal and is not answering questions appropriately. ALLERGIES: PENICILLIN. HOME MEDICATIONS: 1. Metformin. 2. Tramadol. 3. Senna. 4. Acetaminophen. 5. Zofran. 6. Coumadin. 7. Dextran. 8. Artificial Tears. 9. Aspirin. 10. Vitamin D3. 11. Pravastatin. PHYSICAL EXAMINATION: VITAL SIGNS: Temperature 98.3, pulse 66, respirations 18, blood pressure 126/76, saturation 97% on r oom air. GENERAL: No apparent distress, pleasantly demented, not really communicative, appears stated age. HEENT: Normocephalic, atraumatic. Sclerae are nonicteric. Pupils are symmetric and round. Trachea midline. Moist mucous membranes. CARDIOVASCULAR: Regular rate and rhythm. Normal S1, S2. Symmetric pulses. CHEST: No increased work of breathing. Symmetric expansion of lungs. Clear anteriorly. ABDOMEN: Soft, nontender, nondistended, positive bowel sounds. No suprapubic tenderness. No organo megaly, no rebound, guarding or peritoneal signs. GENITOURINARY: Dutta catheter is currently in place draining clear yellow urine, which is secured wi th a StatLock. No significant penoscrotal edema. EXTREMITIES: No clubbing, cyanosis or edema. MUSCULOSKELETAL: No obvious joint deformities or joint erythema noted. There is some lower extremit y atrophy of the musculature. SKIN: Warm, dry, poor turgor, no rashes or lesions. PSYCHIATRIC: Alert and oriented x1. The patient is not really answering questions. Frequently will lose interest in the conversation and go back to watching TV. NEUROLOGIC: Cranial nerves II-XII appear grossly intact. There does appear to be some deficits in t he lower extremity, although the patient can move them. Weightbearing status was not tested. LABORATORY DATA AND IMAGING DATA: On laboratory evaluation, a full set of labs are in the [facility], which I have reviewed. Of note, the patient's white count is currently 13.5 with hemoglobin o f 12.2, platelet count is 155. PT is slightly elevated at 17.4, creatinine is 0.62 with a sodium of 133. Urinalysis demonstrates red urine which is turbid, greater than 50 RBCs, 7-10 wbc's, 3+ bacteri a. Urine culture is growing Proteus mirabilis sensitive to all antibiotics except nitrofurantoin. B lood cultures are negative. No imaging is done up to this time on this admission other than a chest x-ray on admission which was unremarkable. ASSESSMENT AND PLAN: A 71-year-old white male with urinary retention and gross hematuria. It is bessie y likely that his hematuria is secondary to urinary tract infection and urinary retention which proba abdirizak coincided. The patient likely has longstanding urinary retention and difficulty urinating given his history of CVAs, postpolio syndrome and probable BPH. His prostate was not checked today due to the patient having some difficulty with transfers and not really following commands, but I can always check this at a later date. Given that he did have 800 mL of urinary retention, I would not recomme nd his catheter be removed at this time as he will need at least 1 week with a catheter to allow blad jerica recovery from infection and from over-distention injury. At that point if he is still in the [facility] pital, we can plan a voiding trial here. If he is already discharged, we will plan follow up in my o ice with a void trial at that time. A formal hematuria workup is not really necessary given that paula estrada has had bladder infection at the time of the hematuria onset; however, if the hematuria persists or returns again in the future without infection, a hematuria workup would be warranted given his smoki ng history. His urine is currently clear now, so I do not think any further needs to be done. If it remains clear for 48 hours, his anticoagulation if he does take any can be resumed. I will continue to follow along and make recommendations accordingly.
[2017-10-11 12:13] LABS: Hemoglobin 12.8 g/dL (14.0-18.0); Platelet Count 159 thou/uL (130-400)
[2017-10-11] MEDS: Warfarin Sodium 2 MG TAB PO SCH (16:15)
[2017-10-11] MEDS: metFORMIN 850 MG TAB PO SCH ×2 (16:15→21:00)
[2017-10-11] MEDS: Aspirin 81 mg Enteric Coated Tablet PO SCH (20:30)
[2017-10-11] MEDS: Atorvastatin Calcium 10 MG TAB PO SCH (20:30)
[2017-10-12] MEDS: Acetaminophen 325 MG TAB PO PRN (00:30)
[2017-10-12 05:55] LABS: #Eosinphils 0.1 thou/uL (0.0-0.7); #Lymphocytes 1.2 thou/uL (1.20-3.40); #Monocytes 0.9 thou/uL (0.11-0.59); #Neutrophils 8.5 thou/uL (1.40-6.50); %Basophils 0.2 % (0.0-1.0); %Eosinophils 0.8 % (0.0-10.0); %Lymphocytes 11.4 % (21.0-51.0); %Monocytes 8.7 % (0.0-10.0); %Neutrophils 78.9 % (42.0-75.0); Hemoglobin 12.1 g/dL (14.0-18.0); Mean Corpuscular HGB CONC 34.1 g/dL (32.0-36.0); Mean Corpuscular Hemoglobin 32.9 pg (27.0-31.0); Mean Corpuscular Volume 96.4 fL (78.0-98.0); Mean Platelet Volume 7.3 fL (7.4-10.4); Platelet Count 168 thou/uL (130-400); RBC Distribution Width 12.1 % (11.5-14.5); Red Blood Cell (RBC) Count 3.67 mill/uL (4.70-6.10); White Blood Cell (WBC) Count 10.7 thou/uL (4.8-10.8)
[2017-10-12] MEDS: Sodium Chloride 0.9% 1,000 ML IV SCH ×2 (05:59→14:44)
[2017-10-12 06:01] LABS: INR-International Normal Ratio 1.3; Prothrombin Time 16.3 SEC (12.0-14.7)
[2017-10-12 06:08] LABS: Anion Gap 13 mmol/L (10-20); BUN (Urea Nitrogen) 12 mg/dL (8.4-25.7); Calc. Creatinine Clearance 108 mL/min (70-130); Calcium 8.6 mg/dL (7.8-10.44); Carbon Dioxide 21 mmol/L (23-31); Chloride 102 mmol/L (98-107); Estimated GFR-MDRD Greater than 90; Glucose 94 mg/dL (83-110); Potassium 3.9 mmol/L (3.5-5.1); Sodium 132 mmol/L (136-145)
[2017-10-12] MEDS: metFORMIN 850 MG TAB PO SCH ×3 (09:57→21:07)
[2017-10-12] MEDS: cefTRIAXone\\ROCEPHIN 1 GM in Sodium Chloride 0.9% 100 ML IVPB SCH (09:57)
--- NOTE | 2017-10-12 11:15 | PDOC.PN ---
- Subjective Encounter Start Date: 10/12/17 Encounter Start Time: 11:13 -: non-verbal Subjective: no distress - Objective Resuscitation Status: Resuscitation Status FULL:Full Resuscitation MAR Reviewed: Yes Vital Signs & Weight: Vital Signs (12 hours) Temp Pulse Resp BP Pulse Ox 10/12/17 08:00 98.0 F 71 18 147/78 H 95 10/12/17 04:00 98.0 F 68 18 111/70 95 10/12/17 00:25 100 F H 69 18 108/68 95 Weight Weight 166 lb 8 oz I&O: 10/11/17 10/12/17 10/13/17 06:59 06:59 06:59 Intake Total 1740 2715 Output Total 1325 1450 Balance 415 1265 Result Diagrams: 10/12/17 05:32 10/12/17 05:32 Additional Labs: Accuchecks 10/12/17 10/11/17 10/11/17 05:25 20:28 16:56 POC Glucose 97 101 103 Phys Exam - Physical Examination Neck: no JVD Respiratory: clear to auscultation bilateral Gastrointestinal: soft, positive bowel sounds Musculoskeletal: no edema Dx/Plan (1) Sepsis Code(s): A41.9 - SEPSIS, UNSPECIFIED ORGANISM Status: Acute Qualifiers: Sepsis type: sepsis due to unspecified organism Qualified Code(s): A41.9 - Sepsis, unspecified organism (2) Coagulation defect, unspecified Code(s): D68.9 - COAGULATION DEFECT, UNSPECIFIED Status: Chronic Comment: Hereditary coagulopathy requiring coumadin. (3) Multi-infarct dementia Code(s): F01.50 - VASCULAR DEMENTIA WITHOUT BEHAVIORAL DISTURBANCE Status: Chronic (4) UTI (urinary tract infection) Status: Acute Qualifiers: Urinary tract infection type: site unspecified Comment: Had fever and hematuria. Chronic incontinence. Looks like Proteus. Continue Zosyn pending cultures. (5) Diabetes mellitus type 2 in nonobese Code(s): E11.9 - TYPE 2 DIABETES MELLITUS WITHOUT COMPLICATIONS Status: Acute - Plan urine clear-warfarin started, monitor INR -: leukocytosis cleared- deescalate to po antibx -: cont burnette drainage * .
[2017-10-12] MEDS ORDERED: Warfarin Sodium 3 MG TAB PO SCH (17:00)
[2017-10-12] MEDS: Aspirin 81 mg Enteric Coated Tablet PO SCH (21:07)
[2017-10-12] MEDS: Atorvastatin Calcium 10 MG TAB PO SCH (21:07)
[2017-10-12] MEDS: Cefdinir 300 MG CAP PO SCH (21:07)
[2017-10-13] MEDS: Sodium Chloride 0.9% 1,000 ML IV SCH ×3 (02:42→22:29)
[2017-10-13 04:30] LABS: INR-International Normal Ratio 1.4; Prothrombin Time 17.5 SEC (12.0-14.7)
[2017-10-13] MEDS: metFORMIN 850 MG TAB PO SCH ×3 (08:50→20:49)
[2017-10-13] MEDS: Cefdinir 300 MG CAP PO SCH ×2 (08:50→20:49)
--- NOTE | 2017-10-13 11:06 | PQF ---
CLINICAL DOCUMENTATION IMPROVEMENT CLARIFICATION FORM: ICD-10 Updated PLEASE DO AN ADDENDUM TO THE PROGRESS NOTE WITH ANY DOCUMENTATION UPDATES OR ADDITIONS AND CARRY THROUGH TO DC SUMMARY. THANK YOU. DATE: 10/13 ATTN: DR. XAVI ROSALES Please exercise your independent, professional judgment in responding to the clarification form. Clinical indicators are provided on the bottom of this form for your review. Please check appropriate box(s): [ ] Encephalopathy: Type: [ ] Acute [ ] Subacute [ ] Chronic Etiology: [ ] Metabolic [ ] Toxic [ ] Septic [ ] Unspecified [ ] in the setting of underlying dementia [ ] Other (please specify) [ x ] Other diagnosis ___dementia [ ] Unable to determine For continuity of documentation, please document condition throughout progress notes and discharge summary. Thank You. CLINICAL INDICATORS - SIGNS / SYMPTOMS / LABS ER PHYSICIAN DOCUMENTATION 10/09: PT PRESENTS WITH AMS; NOT ORIENTED TO TIME, PLACE, OR LOCATION; ANSWERS SOME QUESTIONS FINAL DIAGNOSES: SEPSIS, AMS, UTI ATTENDING H&P DOCUMENTATION (LONG) 10/09: HX OF PRESENT ILLNESS: ...PT HAS LONG-STANDING DEMENTIA. THE PT WAS NOTED AT [place] TODAY TO HAVE TEMP OF 100, SOME AMS W/ DECREASED MENTATION & SLIGHT AGITATION; PHYSICAL EXAM: GENERAL - HE IS NOT ORIENTED. VERBALLY INTERACTIVE & WILL ANSWER WITH ONE WORD FOR THE MOST PART. PN 10/10 (LONG): DX/PLAN: 4) MULTI-INFARCT DEMENTIA UROLOGY CONSULT 10/11: HX OF PRESENT ILLNESS: ...ON MY DISCUSSION WITH THE PT, HE IS EXTREMELY ALTERED AT THE CURRENT TIME, IT IS UNCLEAR WHETHER THIS IS HIS BASELINE OR HAS ACUTELY WORSENED GIVEN HIS HOSPITALIZATION, BUT HE IS RELATIVELY NONVERBAL & IS NOT REALLY ANSWERING QUESTIONS APPROPRIATELY. PN 10/11 (CONNIE): SUBJECTIVE - PLEASANTLY CONFUSED; 3) MULTI-INFARCT DEMENTIA PN 10/12 (CONNIE): NON-VERBAL; 3) MULTI-INFARCT DEMENTIA RISK FACTORS: SEPSIS UTI (PROTEUS MIRABILIS) HX OF DEMENTIA TREATMENTS: IV ANTIBIOTIC (ROCEPHIN 10/09 - ) IVF (NS 09/22/ PRESENT) THANK YOU! Shaye (This form is maintained as a part of the permanent medical record) 2014 [employer]. All Rights Reserved Shaye Cabrera, [email or web address] Office: [phone] DINA
--- NOTE | 2017-10-13 11:15 | PDOC.PN ---
- Subjective Encounter Start Date: 10/13/17 Encounter Start Time: 11:13 Subjective: awake, calm - Objective Resuscitation Status: Resuscitation Status FULL:Full Resuscitation MAR Reviewed: Yes Vital Signs & Weight: Vital Signs (12 hours) Temp Pulse Resp BP Pulse Ox 10/13/17 08:00 98.6 F 72 20 95 10/13/17 07:35 98.6 F 72 20 128/65 95 Weight Weight 166 lb 8 oz I&O: 10/12/17 10/13/17 10/14/17 06:59 06:59 06:59 Intake Total 2715 3130 Output Total 1450 2250 Balance 1265 880 Result Diagrams: 10/12/17 05:32 10/12/17 05:32 Additional Labs: Accuchecks 10/13/17 10/12/17 10/12/17 05:32 19:42 17:09 POC Glucose 89 111 H 100 10/12/17 11:31 POC Glucose 96 Phys Exam - Physical Examination Neck: no JVD Respiratory: clear to auscultation bilateral Cardiovascular: RRR, no significant murmur Gastrointestinal: soft, positive bowel sounds Musculoskeletal: edema present Dx/Plan (1) Sepsis Code(s): A41.9 - SEPSIS, UNSPECIFIED ORGANISM Status: Acute Qualifiers: Sepsis type: sepsis due to unspecified organism Qualified Code(s): A41.9 - Sepsis, unspecified organism (2) Coagulation defect, unspecified Code(s): D68.9 - COAGULATION DEFECT, UNSPECIFIED Status: Chronic Comment: Hereditary coagulopathy requiring coumadin. (3) Multi-infarct dementia Code(s): F01.50 - VASCULAR DEMENTIA WITHOUT BEHAVIORAL DISTURBANCE Status: Chronic (4) UTI (urinary tract infection) Status: Acute Qualifiers: Urinary tract infection type: site unspecified Comment: Had fever and hematuria. Chronic incontinence. Looks like Proteus. Continue Zosyn pending cultures. (5) Diabetes mellitus type 2 in nonobese Code(s): E11.9 - TYPE 2 DIABETES MELLITUS WITHOUT COMPLICATIONS Status: Acute - Plan sepsis syndrome resolved -: trnsition to po antibx -: cont warfarin , monitor INR * .
[2017-10-13 11:35] LABS: Hemoglobin 11.2 g/dL (14.0-18.0); Platelet Count 192 thou/uL (130-400)
[2017-10-13] MEDS: Warfarin Sodium 2 MG TAB PO SCH (16:59)
[2017-10-13] MEDS: Atorvastatin Calcium 10 MG TAB PO SCH (20:49)
[2017-10-13] MEDS: Aspirin 81 mg Enteric Coated Tablet PO SCH (20:49)
[2017-10-14 05:48] LABS: INR-International Normal Ratio 1.4; Prothrombin Time 17.6 SEC (12.0-14.7)
[2017-10-14] MEDS: Cefdinir 300 MG CAP PO SCH ×2 (08:17→20:37)
[2017-10-14] MEDS: metFORMIN 850 MG TAB PO SCH ×3 (08:17→20:39)
[2017-10-14] MEDS: Sodium Chloride 0.9% 1,000 ML IV SCH ×2 (08:32→16:38)
--- NOTE | 2017-10-14 09:50 | PDOC.PN ---
- Subjective Encounter Start Date: 10/14/17 Encounter Start Time: 09:44 Subjective: no distress - Objective Resuscitation Status: Resuscitation Status FULL:Full Resuscitation MAR Reviewed: Yes Vital Signs & Weight: Vital Signs (12 hours) Temp Pulse Resp BP Pulse Ox 10/14/17 08:00 97.8 F 65 20 10/14/17 07:36 97.8 F 65 20 128/60 96 Weight Weight 166 lb 8 oz I&O: 10/13/17 10/14/17 10/15/17 06:59 06:59 06:59 Intake Total 3130 1450 Output Total 2250 2125 Balance 880 -675 Result Diagrams: 10/13/17 11:21 10/12/17 05:32 Additional Labs: Accuchecks 10/14/17 10/13/17 10/13/17 05:53 20:52 16:15 POC Glucose 82 87 98 10/13/17 11:10 POC Glucose 87 Laboratory Tests 10/14/17 05:00 INR 1.4 Phys Exam - Physical Examination Neck: no JVD Respiratory: clear to auscultation bilateral Cardiovascular: RRR, no significant murmur Gastrointestinal: soft, positive bowel sounds Musculoskeletal: no edema Dx/Plan (1) Sepsis Code(s): A41.9 - SEPSIS, UNSPECIFIED ORGANISM Status: Resolved Qualifiers: Sepsis type: sepsis due to unspecified organism Qualified Code(s): A41.9 - Sepsis, unspecified organism (2) Coagulation defect, unspecified Code(s): D68.9 - COAGULATION DEFECT, UNSPECIFIED Status: Chronic Comment: Hereditary coagulopathy requiring coumadin. (3) Multi-infarct dementia Code(s): F01.50 - VASCULAR DEMENTIA WITHOUT BEHAVIORAL DISTURBANCE Status: Chronic (4) UTI (urinary tract infection) Status: Acute Qualifiers: Urinary tract infection type: site unspecified Comment: Had fever and hematuria. Chronic incontinence. Looks like Proteus. Continue Zosyn pending cultures. (5) Diabetes mellitus type 2 in nonobese Code(s): E11.9 - TYPE 2 DIABETES MELLITUS WITHOUT COMPLICATIONS Status: Chronic - Plan INR still low, will increease warfarin -: on po antibx for UTI * .
[2017-10-14] MEDS: Warfarin Sodium 7.5 MG TAB PO SCH (16:38)
[2017-10-14] MEDS: Atorvastatin Calcium 10 MG TAB PO SCH (20:37)
[2017-10-14] MEDS: Aspirin 81 mg Enteric Coated Tablet PO SCH (20:37)
[2017-10-15 05:03] LABS: INR-International Normal Ratio 1.6; Prothrombin Time 19.1 SEC (12.0-14.7)
[2017-10-15] MEDS: Sodium Chloride 0.9% 1,000 ML IV SCH ×2 (05:10→17:52)
[2017-10-15] MEDS: metFORMIN 850 MG TAB PO SCH ×3 (09:04→20:14)
[2017-10-15] MEDS: Cefdinir 300 MG CAP PO SCH ×2 (09:04→20:13)
[2017-10-15 12:45] LABS: Hemoglobin 11.8 g/dL (14.0-18.0); Platelet Count 276 thou/uL (130-400)
--- NOTE | 2017-10-15 13:55 | PDOC.PN ---
- Subjective Encounter Start Date: 10/15/17 Encounter Start Time: 11:00 patient is seen today, drowsy and lethargic, persistent cath per urology. - Objective Resuscitation Status: Resuscitation Status FULL:Full Resuscitation MAR Reviewed: Yes Vital Signs & Weight: Vital Signs (12 hours) Temp Pulse Resp BP BP Pulse Ox 10/15/17 12:00 98.9 F 65 16 131/67 96 10/15/17 08:00 98.0 F 57 L 20 94 L 10/15/17 06:58 98.0 F 57 L 20 128/81 94 L Weight Weight 166 lb 8 oz I&O: 10/14/17 10/15/17 10/16/17 06:59 06:59 06:59 Intake Total 1450 2160 Output Total 2125 3150 Balance -675 -990 Result Diagrams: 10/15/17 12:29 10/12/17 05:32 Additional Labs: Accuchecks 10/15/17 10/15/17 10/14/17 11:11 05:43 19:25 POC Glucose 88 88 98 10/14/17 16:13 POC Glucose 88 Radiology Reviewed by me: Yes Phys Exam - Physical Examination HEENT: PERRLA, moist MMs Neck: no nodes, no JVD Respiratory: no wheezing, no rales Cardiovascular: RRR, no significant murmur Gastrointestinal: soft, non-tender Musculoskeletal: no edema, pulses present Neurological: non-focal Lymphatic: no nodes Dx/Plan (1) Hematuria Code(s): R31.9 - HEMATURIA, UNSPECIFIED Status: Acute Comment: UTI while on anticoagulation. Had some clots noted when Burnette placed. Will reeove burnette today, if he is peeing good, will discharge pt to [place] tomorrow. (2) UTI (urinary tract infection) Status: Acute Qualifiers: Urinary tract infection type: site unspecified Comment: Had fever and hematuria. Chronic incontinence. Looks like Proteus. Continue Cefinirr po BID (3) Coagulation defect, unspecified Code(s): D68.9 - COAGULATION DEFECT, UNSPECIFIED Status: Chronic Comment: Hereditary coagulopathy requiring coumadin. (4) Multi-infarct dementia Code(s): F01.50 - VASCULAR DEMENTIA WITHOUT BEHAVIORAL DISTURBANCE Status: Chronic (5) Diabetes mellitus type 2 in nonobese Code(s): E11.9 - TYPE 2 DIABETES MELLITUS WITHOUT COMPLICATIONS Status: Chronic - Plan cont current plan of care, burnette catheter (remove), respiratory therapy, incentive spirometry, DVT proph w/heparin, DVT proph w/lovenox, DVT proph w/SCDs NH tomorrow * . Review of Systems - Review of Systems Eyes: negative: Pain, Vision Change, Conjunctivae Inflammation, Eyelid Inflammation, Redness, Other ENT: negative: Ear Pain, Ear Discharge, Nose Pain, Nose Discharge, Nose Congestion, Mouth Pain, Mouth Swelling, Throat Pain, Throat Swelling, Other Respiratory: negative: Cough, Dry, Shortness of Breath, Hemoptysis, SOB with Excertion, Pleuritic Pain, Sputum, Wheezing Cardiovascular: negative: chest pain, palpitations, orthopnea, paroxysmal nocturnal dyspnea, edema, light headedness, other Gastrointestinal: negative: Nausea, Vomiting, Abdominal Pain, Diarrhea, Constipation, Melena, Hematochezia, Other Musculoskeletal: negative: Neck Pain, Shoulder Pain, Arm Pain, Back Pain, Hand Pain, Leg Pain, Foot Pain, Other - Medications/Allergies Allergies/Adverse Reactions: Allergies Allergy/AdvReac Type Severity Reaction Status Date / Time Penicillins Allergy Verified 01/24/17 20:53 Medications: Current Medications Acetaminophen (Tylenol) 650 mg PO Q4H PRN PRN Reason: Headache/Fever or Pain Last Admin: 10/12/17 00:30 Dose: 650 mg Aspirin (Ecotrin) 81 mg PO [facility] Last Admin: 10/14/17 20:37 Dose: 81 mg Atorvastatin Calcium (Lipitor) 10 mg PO [facility] Last Admin: 10/14/17 20:37 Dose: 10 mg Cefdinir (Omnicef) 300 mg PO BID [facility] Last Admin: 10/15/17 09:04 Dose: 300 mg Dextrose/Water (Dextrose 50%) 25 gm SLOW IVP PRN PRN PRN Reason: Hypoglycemia Glucagon (Glucagon) 1 mg IM PRN PRN PRN Reason: Hypoglycemia Sodium Chloride (Normal Saline 0.9%) 1,000 mls @ 100 mls/hr IV .Q10H [facility] Last Admin: 10/15/17 05:10 Dose: 1,000 mls Dextrose/Water (D5w) 1,000 mls @ 0 mls/hr IV .Q0M PRN PRN Reason: Hypoglycemia Insulin Human Lispro (Humalog) 0 units SC .MILD SLIDING SCALE PRN PRN Reason: Mild Correctional Scale Metformin HCl (Glucophage) 850 mg PO TID [facility] Last Admin: 10/15/17 09:04 Dose: 850 mg Sodium Chloride (Flush - Normal Saline) 10 ml IVF Q12HR [facility] Last Admin: 10/15/17 09:01 Dose: Not Given Sodium Chloride (Flush - Normal Saline) 10 ml IVF PRN PRN PRN Reason: Saline Flush Warfarin Sodium (Coumadin) 7.5 mg PO 1700 [facility] Last Admin: 10/14/17 16:38 Dose: 7.5 mg
[2017-10-15] MEDS: Warfarin Sodium 7.5 MG TAB PO SCH (17:29)
--- NOTE | 2017-10-15 18:42 | RAD ---
PORTABLE AP CHEST X-RAY 10/15/17 HISTORY: Possible aspiration, cough and shortness of breath. COMPARISON: 10/09/17. FINDINGS: The cardiac silhouette and pulmonary vasculature are magnified by projection. The lungs appears clear . Calcified left hilar lymph nodes are again present. Thoracic aorta is tortuous. Degenerative change s are noted in the spine. There is bilateral glenohumeral osteoarthropathy and osteopenia. Chest is s imilar to prior exam. IMPRESSION: Stable chest without evidence of acute cardiopulmonary process. POS: [facility]
[2017-10-15] MEDS: Atorvastatin Calcium 10 MG TAB PO SCH (20:13)
[2017-10-15] MEDS: Aspirin 81 mg Enteric Coated Tablet PO SCH (20:13)
[2017-10-16 04:23] LABS: INR-International Normal Ratio 1.8; Prothrombin Time 21.3 SEC (12.0-14.7)
[2017-10-16] MEDS: metFORMIN 850 MG TAB PO SCH ×3 (08:40→20:23)
[2017-10-16] MEDS: Cefdinir 300 MG CAP PO SCH ×2 (08:40→20:23)
--- NOTE | 2017-10-16 16:37 | EKG ---
Test Reason : Blood Pressure : / mmHG Vent. Rate : 124 BPM Atrial Rate : 124 BPM P-R Int : 156 ms QRS Dur : 082 ms QT Int : 320 ms P-R-T Axes : 033 -59 024 degrees QTc Int : 459 ms Poor data quality, interpretation may be adversely affected Sinus tachycardia Left anterior fascicular block Abnormal ECG Confirmed by KAVIN BOWIE ([id number]), content editor PHUONG TEMPLE ([id number]) on 10/16/2017 4:37:04 PM Referred By: Confirmed By:KAVIN BOWIE
[2017-10-16] MEDS: Warfarin Sodium 7.5 MG TAB PO SCH (17:19)
--- NOTE | 2017-10-16 19:23 | PDOC.PN ---
- Subjective Encounter Start Date: 10/16/17 Encounter Start Time: 19:00 Giotent iss een today, alert AND OREINTED. NO OTHER CONCERNS NOTED. Discussed with nurse to continue the Burnette cath at least for a week, as he failed to urinate on his own. - Objective Resuscitation Status: Resuscitation Status FULL:Full Resuscitation MAR Reviewed: Yes Vital Signs & Weight: Vital Signs (12 hours) Temp Pulse Resp BP Pulse Ox 10/16/17 15:45 98.1 F 64 19 95 10/16/17 11:39 99.3 F 62 18 134/79 96 10/16/17 07:40 99 F 58 L 18 131/81 94 L Weight Weight 166 lb 8 oz I&O: 10/15/17 10/16/17 10/17/17 06:59 06:59 06:59 Intake Total 2160 1050 300 Output Total 3150 2800 795 Balance -990 -1750 -495 Result Diagrams: 10/15/17 12:29 10/12/17 05:32 Additional Labs: Accuchecks 10/16/17 10/16/17 10/16/17 15:36 11:02 05:33 POC Glucose 94 90 85 10/15/17 19:32 POC Glucose 79 Radiology Reviewed by me: Yes Phys Exam - Physical Examination HEENT: PERRLA, moist MMs Neck: no nodes, no JVD Respiratory: no wheezing, no rales, no rhonchi Cardiovascular: RRR, no significant murmur Gastrointestinal: soft, non-tender Musculoskeletal: no edema, pulses present Neurological: non-focal Lymphatic: no nodes Dx/Plan (1) Hematuria Code(s): R31.9 - HEMATURIA, UNSPECIFIED Status: Acute Comment: UTI while on anticoagulation. Had some clots noted when Burnette placed. Pt couldnt pass urine without burnette, burnette back in, will continue. (2) UTI (urinary tract infection) Status: Acute Qualifiers: Urinary tract infection type: site unspecified Comment: Had fever and hematuria. Chronic incontinence. Looks like Proteus. Continue Cefinirr po BID , complete 10 total days of abx. (3) Coagulation defect, unspecified Code(s): D68.9 - COAGULATION DEFECT, UNSPECIFIED Status: Chronic Comment: Hereditary coagulopathy requiring coumadin. (4) Multi-infarct dementia Code(s): F01.50 - VASCULAR DEMENTIA WITHOUT BEHAVIORAL DISTURBANCE Status: Chronic (5) Diabetes mellitus type 2 in nonobese Code(s): E11.9 - TYPE 2 DIABETES MELLITUS WITHOUT COMPLICATIONS Status: Chronic Comment: well controlled. continue with SSI. - Plan cont current plan of care, continue antibiotics, PT/OT, social work nurse, incentive spirometry, DVT proph w/lovenox * . Review of Systems - Review of Systems Eyes: negative: Pain, Vision Change, Conjunctivae Inflammation, Eyelid Inflammation, Redness, Other ENT: negative: Ear Pain, Ear Discharge, Nose Pain, Nose Discharge, Nose Congestion, Mouth Pain, Mouth Swelling, Throat Pain, Throat Swelling, Other Respiratory: negative: Cough, Dry, Shortness of Breath, Hemoptysis, SOB with Excertion, Pleuritic Pain, Sputum, Wheezing Cardiovascular: negative: chest pain, palpitations, orthopnea, paroxysmal nocturnal dyspnea, edema, light headedness, other Gastrointestinal: negative: Nausea, Vomiting, Abdominal Pain, Diarrhea, Constipation, Melena, Hematochezia, Other Genitourinary: negative: Dysuria, Frequency, Incontinence, Hematuria, Retention , Other Musculoskeletal: negative: Neck Pain, Shoulder Pain, Arm Pain, Back Pain, Hand Pain, Leg Pain, Foot Pain, Other - Medications/Allergies Allergies/Adverse Reactions: Allergies Allergy/AdvReac Type Severity Reaction Status Date / Time Penicillins Allergy Verified 01/24/17 20:53 Medications: Current Medications Acetaminophen (Tylenol) 650 mg PO Q4H PRN PRN Reason: Headache/Fever or Pain Last Admin: 10/12/17 00:30 Dose: 650 mg Aspirin (Ecotrin) 81 mg PO [facility] Last Admin: 10/15/17 20:13 Dose: 81 mg Atorvastatin Calcium (Lipitor) 10 mg PO [facility] Last Admin: 10/15/17 20:13 Dose: 10 mg Cefdinir (Omnicef) 300 mg PO BID [facility] Last Admin: 10/16/17 08:40 Dose: 300 mg Dextrose/Water (Dextrose 50%) 25 gm SLOW IVP PRN PRN PRN Reason: Hypoglycemia Glucagon (Glucagon) 1 mg IM PRN PRN PRN Reason: Hypoglycemia Dextrose/Water (D5w) 1,000 mls @ 0 mls/hr IV .Q0M PRN PRN Reason: Hypoglycemia Insulin Human Lispro (Humalog) 0 units SC .MILD SLIDING SCALE PRN PRN Reason: Mild Correctional Scale Metformin HCl (Glucophage) 850 mg PO TID [facility] Last Admin: 10/16/17 14:57 Dose: 850 mg Sodium Chloride (Flush - Normal Saline) 10 ml IVF Q12HR [facility] Last Admin: 10/16/17 08:41 Dose: Not Given Sodium Chloride (Flush - Normal Saline) 10 ml IVF PRN PRN PRN Reason: Saline Flush Warfarin Sodium (Coumadin) 7.5 mg PO 1700 [facility] Last Admin: 10/16/17 17:19 Dose: 7.5 mg
[2017-10-16] MEDS: Aspirin 81 mg Enteric Coated Tablet PO SCH (20:23)
[2017-10-16] MEDS: Atorvastatin Calcium 10 MG TAB PO SCH (20:23)
[2017-10-17 05:05] LABS: Prothrombin Time 22.4 SEC (12.0-14.7)
[2017-10-17] MEDS: Cefdinir 300 MG CAP PO SCH ×2 (09:46→20:08)
[2017-10-17] MEDS: metFORMIN 850 MG TAB PO SCH ×3 (09:46→20:08)
[2017-10-17 12:01] LABS: Hemoglobin 12.8 g/dL (14.0-18.0); Platelet Count 340 thou/uL (130-400)
[2017-10-17] MEDS: Warfarin Sodium 7.5 MG TAB PO SCH (17:40)
[2017-10-17] MEDS: Atorvastatin Calcium 10 MG TAB PO SCH (20:08)
[2017-10-17] MEDS: Aspirin 81 mg Enteric Coated Tablet PO SCH (20:08)
[2017-10-18 05:52] LABS: INR-International Normal Ratio 2.1; Prothrombin Time 23.5 SEC (12.0-14.7)
[2017-10-18] MEDS: Cefdinir 300 MG CAP PO SCH (09:15)
[2017-10-18] MEDS: metFORMIN 850 MG TAB PO SCH ×2 (09:15→15:00)
[2017-10-18 12:50] VITALS: BP 107/70; TEMP 98.4
--- NOTE | 2017-10-19 04:53 | DIS ---
DATE OF ADMISSION: 10/09/2017 DATE OF DISCHARGE: 10/18/2017 PRIMARY CARE PHYSICIAN: Ha Hsu MD DISCHARGE DIAGNOSES: 1. Hematuria and urinary retention, status post Dutta catheter. The patient was seen by Dr. Duggan . 2. Urinary tract infection. 3. 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 4. History of multi-infarct dementia. 5. Diabetes mellitus type 2. 6. Post-polio syndrome. DISCHARGE DISPOSITION: Back to [facility] with OT, PT, and speech the rapy. DISCHARGE MEDICATIONS: Follows: Metformin 850 p.o. t.i.d., tramadol p.r.n., Senokot p.r.n., acetami nophen p.r.n., Zofran p.r.n., sore throat lozenges p.r.n., Coumadin 6 and 4 mg on alternate days, Omn icef 300 mg p.o. b.i.d. for 5 more days, Pravachol 40 mg daily, multivitamin daily, aspirin 81 mg shawn ly. INHOUSE CONSULTATION: Urology, Dr. Duggan. PROCEDURES DONE IN THE HOSPITAL: Multiple chest x-rays and placement of a Dutta catheter. HISTORY OF PRESENTING ILLNESS: Mr. Hernandez is a pleasant 71-year-old male who was admitted on [address] Tee for complaints of altered mental status. The patient was sent in from the custodial where he is a permanent resident for altered mental status as above. He does have some baselin e dementia. He was noted to have a fever of 100 degrees with decreased mentation and slight agitatio n. His urine was also found to be bloody and foul smelling. Upon presentation, his tachycardic with a heart rate of 110, otherwise stable. He had leukocytosis with WBC count of 12.21. Urinalysis andrés wing multiple red blood cell, wbc's and bacteria. Chest x-ray was unremarkable. He was admitted wit h a presumptive diagnosis of sepsis secondary to urinary tract infection. His lactic acid was 2.6 an d INR 1.8. Please see admission history and physical for further detail. HOSPITAL COURSE: The patient was seen by Urology, Dr. Duggan, for the hematuria. He also exhibited difficulty urination and urinary retention. A Dutta catheter was placed by Dr. Duggan with return of gross bloody urine, but the hematuria eventually cleared and before the discharge, it was discusse d with Dr. Duggan and he recommended an outpatient followup and discharge the patient with the Dutta catheter. He was continued on initially IV antibiotics which were later changed to oral antibiotics. He was al ready on Omnicef when I picked up his care this morning. His urine culture was reviewed by myself, w [facility] [place] showed Proteus mirabilis, which was resistant only to nitrofurantoin. Blood cultures were negat odette. He was seen and examined this morning and is hemodynamically stable and at his baseline. He is being discharged back to [facility]. His INR this morning is 2.1 and he will be monitored with every other day PT/INR at [facility]. His home doses of Coumadin is being resumed. He was seen and examined prior to discharge. PHYSICAL EXAMINATION: VITAL SIGNS: This morning vital signs, temperature 98.4, pulse of 74, respirations 20, saturating 96 % on room air, blood pressure 107/70. No acute distress. GENERAL: The patient is more or less nonconversant with baseline dementia. He follows simple comman ds. CHEST: Clear to auscultation bilaterally. HEART: Rate and rhythm regular. EXTREMITIES: He moves both upper extremities freely, but does not follow commands or does not move l ower extremities. NEUROLOGIC: His baseline is unknown. LABORATORY DATA: At the time of discharge, hemoglobin 12.8 with hematocrit 36.7, blood sugar 96. IN R 2.1. He will follow up with primary care physician in 1-2 weeks. Total time spent in the discharge of this patient was 32 minutes.
== END 2017-10-18 16:47 | DRG 872 ==
LOC: ERS 05:06 → ERHOLD 06:32 → 2NO 12:38 → ONC 10-11 19:51
PROVIDERS: ADMIT Hospitalist; ATTEND Hospitalist
DX: A41.59 Other Gram-negative sepsis (principal); N39.0 Urinary tract infection, site not specified; D68.9 Coagulation defect, unspecified; R47.01 Aphasia; D68.59 Other primary thrombophilia; R33.9 Retention of urine, unspecified; G14 Postpolio syndrome; F03.90 Unspecified dementia, unspecified severity, without behavioral disturbance, psychotic disturbance, mood disturbance, and anxiety; Z86.73 Personal history of transient ischemic attack (TIA), and cerebral infarction without residual deficits; E11.9 Type 2 diabetes mellitus without complications; G47.33 Obstructive sleep apnea (adult) (pediatric); Z87.891 Personal history of nicotine dependence; Z88.0 Allergy status to penicillin; Z79.84 Long term (current) use of oral hypoglycemic drugs; Z79.01 Long term (current) use of anticoagulants; Z79.82 Long term (current) use of aspirin; Z79.899 Other long term (current) drug therapy; I10 Essential (primary) hypertension; E78.5 Hyperlipidemia, unspecified; R31.0 Gross hematuria; Z99.3 Dependence on wheelchair; K57.90 Diverticulosis of intestine, part unspecified, without perforation or abscess without bleeding; N40.0 Benign prostatic hyperplasia without lower urinary tract symptoms
CPT/HCPCS: 36415; 36416; 51701; 71045; 80048; 80053; 81003; 81015; 83605; 85014; 85018; 85025; 85049; 85610; 85730; 87040; 87077; 87086; 87186; 93005; 96365; 96366; 96367; A4216; G8996-GN-CK; G8997-GN-CK; J0696; J3370; J7050

== ENCOUNTER 2017-11-02 04:10 | Inpatient (IN) | payer MEDICARE, BC ==
[2017-11-02 04:40] LABS: Bilirubin Moderate (Negative); Blood, Urine Large (Negative); Glucose, Urine (Dipstick) Negative (Negative); Leukocyte Moderate (Negative); Nitrite Positive (Negative); Protein, Urine (Dipstick) 100 mg/dL (Neg-Trace); Specific Gravity, Urine 1.025 (1.005-1.030); pH, Urine 5.5 (5.0-9.0)
[2017-11-02 04:41] LABS: Clarity Turbid (Clear)
[2017-11-02 04:47] LABS: ALT (SGPT) 27 U/L (8-55); AST (SGOT) 18 U/L (5-34); Albumin 3.9 g/dL (3.4-4.8); Alkaline Phosphatase 85 U/L (40-150); Anion Gap 17 mmol/L (10-20); BUN (Urea Nitrogen) 51 mg/dL (8.4-25.7); Bilirubin, Total 0.8 mg/dL (0.2-1.2); Calc. Creatinine Clearance 0 mL/min (70-130); Calcium 9.5 mg/dL (7.8-10.44); Carbon Dioxide 18 mmol/L (23-31); Chloride 120 mmol/L (98-107); Estimated GFR-MDRD 66; Globulin 3.4 g/dL (2.4-3.5); Glucose 147 mg/dL (83-110); Potassium 3.9 mmol/L (3.5-5.1); Protein, Total 7.3 g/dL (5.8-8.1); Sodium 151 mmol/L (136-145)
[2017-11-02 04:53] LABS: RBC/HPF GREATER THAN 50-TNTC HPF (0-3)
[2017-11-02 04:53] LABS: CKMB 0.5 ng/mL (0-6.6); Troponin I Less than 0.010 ng/mL (< 0.028)
[2017-11-02 04:54] LABS: Bacteria/HPF 4+ HPF (None Seen); Crystals/HPF 1+ AMMN BIURATE HPF (Negative); Transitional Epithelial 0-3 HPF (0-3)
[2017-11-02] MEDS ORDERED: methylPREDNISolone Sod Succ/PF 125 MG/2 ML VIAL ONE (04:55)
[2017-11-02 04:58] LABS: Hemoglobin 15.8 g/dL (14.0-18.0); Mean Corpuscular HGB CONC 33.7 g/dL (32.0-36.0); Mean Platelet Volume 7.3 fL (7.4-10.4); Platelet Count 412 thou/uL (130-400); RBC Distribution Width 12.3 % (11.5-14.5); White Blood Cell (WBC) Count 18.9 thou/uL (4.8-10.8)
[2017-11-02 05:08] LABS: INR-International Normal Ratio 3.8; Prothrombin Time 37.1 SEC (12.0-14.7)
[2017-11-02 05:09] LABS: D-Dimer Test 0.4 *mcg/mL (0.27-0.43); PTT 58.2 SEC (22.9-36.1)
[2017-11-02 05:24] LABS: Band 14 % (5-11); Lymphocytes 11 % (21-51); MDiff Complete? YES; Monocytes 2 % (0-10); Neutrophil 73 % (42-75); PLT Morphology Comment Appears Adequate; RBC Morphology Normal
[2017-11-02] MEDS ORDERED: CCU Electrolyte Replacement 1 EACH IVPB ONE (05:28)
[2017-11-02] MEDS ORDERED: Acetaminophen 325 MG Suppository PR PRN ×2 (05:28→14:56)
[2017-11-02] MEDS ORDERED: Bisacodyl 5 MG TAB PO PRN ×2 (05:28→14:57)
[2017-11-02] MEDS ORDERED: Insulin Regular 300 UNITS/3 ML VIAL SC PRN ×3 (05:28→14:57)
[2017-11-02] MEDS ORDERED: Milk Of Magnesia 30 ML UDCUP PO PRN ×2 (05:28→14:57)
[2017-11-02] MEDS ORDERED: Norepinephrine 8 MG/0.9% NS 250 ML IVPB PRN ×2 (05:28→14:57)
[2017-11-02] MEDS ORDERED: Ondansetron HCl/PF 4 MG/2 ML Vial IVP PRN ×2 (05:28→14:57)
[2017-11-02] MEDS ORDERED: Lacri-Lube Opth Oint 3.5 GM TUBE EA EYE PRN ×2 (05:28→14:57)
[2017-11-02 05:36] LABS: Actual Bicarbonate (HCO3a) 17.5 mEq/L (22-28); Base Excess (BEa) 5.1 mEq/L (-2.0 to +3.0); CO2 Tension 27.2 mmHg (35.0-45.0); Hemoglobin (Hb) 15.3 g/dL (14.0-18.0); pH, Arterial 7.43 (7.35-7.45)
[2017-11-02 05:37] LABS: Analyzer IN Cardio ER; Calcium, Ionized 1.18 mmol/L (1.12-1.30); Carboxyhemoglobin (COHb) 0.2 gm% (0.0-3.0); Potassium - ABG Lab 3.67 mmol/L (3.70-5.30); Puncture Site RRA
[2017-11-02] MEDS ORDERED: Potassium Chloride 40 MEQ in Sodium Chloride 0.9% 250 ML 250 ML IVPB PRN (05:41)
[2017-11-02] MEDS ORDERED: Potassium Phosphate 15 MMOL in Sodium Chloride 0.9% 250 ML 250 ML IV PRN ×2 (05:41→15:00)
[2017-11-02] MEDS ORDERED: Potassium Phosphate 12 MMOL in Sodium Chloride 0.9% 250 ML 250 ML IV PRN ×2 (05:41→14:59)
[2017-11-02] MEDS ORDERED: CCU ELECTROLYTE REPLACEMENT PROTOCOL FS PRN ×2 (05:41→14:58)
[2017-11-02] MEDS ORDERED: Magnesium 2 GM/NS 0.9% 100 ML 2 GM in Premix Bag 1 BAG IVPB PRN ×2 (05:41→14:59)
[2017-11-02] MEDS ORDERED: Potassium Phosphate 9 MMOL in Sodium Chloride 0.9% 100 ML IVPB PRN ×2 (05:41→14:59)
[2017-11-02] MEDS ORDERED: Potassium Chloride 20 MEQ TAB PO PRN ×2 (05:41→14:57)
[2017-11-02] MEDS ORDERED: Magnesium Oxide 400 MG TAB PO PRN ×4 (05:41→14:59)
[2017-11-02] MEDS ORDERED: Potassium Chloride 40 MEQ in Premix Bag 1 BAG IVPB PRN ×2 (05:41→14:58)
[2017-11-02] MEDS ORDERED: Ventilator Sedation Protocol 1 EACH FS SCH ×2 (05:45→15:00)
[2017-11-02 06:03] LABS: CO2 Tension 26.7 mmHg (35.0-45.0); pH, Arterial 7.37 (7.35-7.45)
[2017-11-02 06:04] LABS: Actual Bicarbonate (HCO3a) 15.2 mEq/L (22-28); Base Excess (BEa) -8.4 mEq/L (-2.0 to +3.0); Calcium, Ionized 1.17 mmol/L (1.12-1.30); Carboxyhemoglobin (COHb) 0.3 gm% (0.0-3.0); Hemoglobin (Hb) 12.9 g/dL (14.0-18.0); O2 Tension (PaO2) 103.3 mmHg (> 70.0); Potassium - ABG Lab 3.66 mmol/L (3.70-5.30)
[2017-11-02 06:05] LABS: ALV-art Gradient 576.325 (0-20); Puncture Site RRA
[2017-11-02] MEDS ORDERED: Propofol BOLUS 1,000 MG/100 ML VIAL IV PRN ×2 (06:06→15:01)
[2017-11-02] MEDS ORDERED: fentaNYL Citrate/PF 2,000 MCG in Sodium Chloride 0.9% 60 ML IV SCH ×2 (06:06→15:15)
[2017-11-02] MEDS ORDERED: Lorazepam 2 MG/ML VIAL SLOW IVP PRN (06:06)
[2017-11-02] MEDS ORDERED: Propofol 1,000 MG/100 ML VIAL IV PRN ×2 (06:06→15:01)
[2017-11-02] MEDS ORDERED: Fentanyl BOLUS 250 ML IVPB PRN ×2 (06:06→15:02)
[2017-11-02] MEDS ORDERED: DISCONTINUE PREVIOUS NARCOTIC PAIN MEDICATIONS AND BENZODIAZEPINES FS SCH (06:06)
[2017-11-02] MEDS ORDERED: ISOVUE-370 76%-LOCM 1 ML ONE (07:53)
[2017-11-02] MEDS: Sodium Chloride 0.45% 1,000 ML IV SCH ×4 (08:00→20:15)
[2017-11-02] MEDS ORDERED: Famotidine/PF 20 mg/2ml Vial SLOW IVP SCH (09:00)
--- NOTE | 2017-11-02 11:24 | RAD ---
PORTABLE CHEST: 11/02/2017 PROVIDED CLINICAL HISTORY: Post intubation. COMPARISON: 11/02/2017 at 3:43 a.m. FINDINGS: Interval placement of endotracheal tube, the tip of which terminates proximal to the que. Left ba silar pleural and/or parenchymal opacity is noted. No evidence for pneumothorax. The right lung jessie ears clear. The examination is rotated, but heart size appears grossly normal. IMPRESSION: Left basilar pleural and/or parenchymal opacity. Followup is recommended. POS: [facility]
--- NOTE | 2017-11-02 11:24 | RAD ---
PORTABLE CHEST: Date: 11-02-17 Provided Clinical History: Tube placement. FINDINGS: Comparison is made with examination performed earlier same date. The lower chest was imaged. Interval placement of an enteric catheter, the tip of which projects in t he expected location of the gastroesophageal junction and the proximal side hole projects over the ex pected location of the mid to distal esophagus. Left basilar pleural and/or parenchymal opacity is re -demonstrated. Evaluation is otherwise limited. IMPRESSION: Enteric catheter positioning as above. POS: [facility]
--- NOTE | 2017-11-02 11:24 | RAD ---
PORTABLE CHEST: Date: 11-02-17 Provided Clinical History: Respiratory distress. FINDINGS: Comparison 10-15-17. The cardiac and mediastinal silhouette is unchanged in appearance. There is paren chymal opacity at the left lung base. There is no evidence for pneumothorax. The right lung appears c lear. IMPRESSION: Left basilar parenchymal opacity. Please correlate with subsequently performed CT pulmonary angiogram . POS: [facility]
[2017-11-02 11:31] LABS: CO2 Tension 32.3 mmHg (35.0-45.0); pH, Arterial 7.41 (7.35-7.45)
[2017-11-02] MEDS ORDERED: Famotidine/PF 20 mg/2ml Vial ONE (11:31)
[2017-11-02 11:32] LABS: Base Excess (BEa) -3.6 mEq/L (-2.0 to +3.0); Calcium, Ionized 1.21 mmol/L (1.12-1.30); Carboxyhemoglobin (COHb) 1.2 gm% (0.0-3.0); Hemoglobin (Hb) 15.5 g/dL (14.0-18.0); O2 Tension (PaO2) 50.2 mmHg (> 70.0); Potassium - ABG Lab 4.17 mmol/L (3.70-5.30)
[2017-11-02 11:33] LABS: ALV-art Gradient 265.925 (0-20); Puncture Site RBA
--- NOTE | 2017-11-02 11:47 | CT ---
PRELIMINARY REPORT/[facility]/EMERGENTY AFTER-HOURS PROCEDURE CT Angiography Chest With Intravenous Contrast EXAM DATE/TIME: 11/02/2017 4:45 AM CLINICAL HISTORY: 71 years old, male; Signs and symptoms; Shortness of breath; Patient HX: Er 10; 71 yo m from [place] presents to ed with respiratory distress. Ems reports PT is in obvious respiratory distress, wit h increased work effort and rhonchi to the left upper and lower lobes. 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 Ems rep orts lower extremity edema, right more than left. PT has HX of dvt, HX of post polio syndrome, and is currently on coumadin. TECHNIQUE: Axial computed tomographic angiography images of the chest with intravenous contrast using CT angiogr aphy protocol. Coronal reformatted images were created and reviewed. MIP reconstructed images were created and reviewed. COMPARISON: No relevant prior studies available. FINDINGS: Pulmonary arteries: No evidence of PE. Aorta: Atherosclerotic aorta. No aneurysm or acute aortic syndrome. Lungs: There is a 4 cm endobronchial mass obstructing the distal left mainstem bronchus, proximal lef t upper lobe bronchus, and left lower lobe bronchus, resulting in complete lobar atelectasis of left lower lobe with probable concomitant postobstructive left lower lobe pneumonia. This is very likely a malignancy; however, mucous plugging is not excluded. Mild bronchiolitis/bronchopneumonia in the pos terior left upper lobe. Pleural space: Normal. No pneumothorax. No pleural effusion. Heart: Trace pericardial effusion. Mediastinum: Esophagus is unremarkable. Bones/joints: Unremarkable. No acute fracture. Soft tissues: Unremarkable. Lymph nodes: Unremarkable. No enlarged lymph nodes. Other findings: Study limited by lack of conventional volumetric reconstructions. IMPRESSION: 1. There is a 4 cm endobronchial mass obstructing the distal left mainstem bronchus, proximal left up per lobe bronchus, and left lower lobe bronchus, resulting in complete lobar atelectasis of left lowe r lobe with probable concomitant postobstructive left lower lobe pneumonia. This is very likely a malignancy; however, mucous plugging is not excluded. 2. Trace pericardial effusion. 3. Mild bronchiolitis/bronchopneumonia in the posterior left upper lobe. Thank you for allowing us to participate in the care of your patient. Dictated and Authenticated by: Rene Shearer MD 11/02/2017 5:11 AM Central Time ([place] & [place]) EMERGENT AFTER HOURS CT PULMONARY ANGIOGRAM WITH IV CONTRAST AND 3D MIP RECONSRUCTIONS: FINAL REPORT IMPRESSION: I agree with the preliminary interpretation given by [facility] that there is occlusion of the left main bro nchus and portions of the left upper lobe bronchi. There is resultant atelectasis of the left lower l obe and pneumonitis involving the lingula. Pulmonary consultation is recommended. There is no evidenc e for central or subsegmental pulmonary embolus. POS: [facility]
[2017-11-02] MEDS ORDERED: Propofol 1,000 MG/100 ML VIAL IV ONE (14:49)
[2017-11-02] MEDS ORDERED: Vancomycin HCl 750 MG in Sodium Chloride 0.9% 250 ML 250 ML IVPB SCH (17:00)
[2017-11-02] MEDS: Vancomycin HCl 750 MG in Sodium Chloride 0.9% 250 ML 250 ML IVPB SCH (18:15)
--- NOTE | 2017-11-02 18:49 | HP ---
CHIEF COMPLAINT: The patient was brought from the [place] [facility] with hypoxia. HISTORY OF PRESENT ILLNESS: This is a 71-year-old male with past medical history of postpolio syndro me, DVTs, coagulation defect with etiology unclear, long-term anticoagulation, CVA in the past, prese nting with shortness of breath which started a couple of days prior to this admission. The patient i s being transferred from the [place] [facility] and the patient was noted to have shortness of breath, diff iculty with his respirations. Patient's O2 saturations were in the 80s per medical staff and due to patient not able to respond to oxygenation on 4 liters nasal cannula, patient was transferred to the hospital to be evaluated. On arrival, the patient's oxygenations were still in the 80s and when the patient was placed on 4 liters nasal cannula, it was hovering around still 80s and 90s. The patient was then put on BiPAP, which the patient started to do a little bit better; however, the patient was very lethargic, using accessory muscles to breathe and abdominal muscles to breathe. Upon looking at the patient in the ED, patient's respiratory rate was in high 35-40. Therefore, decision was made t o intubate the patient in the ED and waterworks operator who was office nurse practitioner was called. REVIEW OF SYSTEMS: Cannot be obtained since patient is lethargic and patient intubated. 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 PAST SURGICAL HISTORY: Left ankle surgery and right knee surgery. SOCIAL HISTORY: Patient is and lives in a [place] [facility]. Former smoker. No history of alcoh ol use. FAMILY HISTORY: Coronary artery disease in his father's side. Patient also has some family members who had a clotting disorder. ALLERGIES: PENICILLIN. CURRENT MEDICATIONS: The patient takes metformin 850, Coumadin 5 mg daily, Folgard 1 p.o. daily, pra vastatin 40 mg daily, Lipitor 20 every day, aspirin 81 mg daily. PHYSICAL EXAMINATION: VITAL SIGNS: Patient's admission vitals was 160/101 blood pressure, O2 saturation at 88%, respirator y rate of 25, pulse of 126, temperature of 98.9. In the ED, patient's blood pressure was 90s systoli c, O2 saturation below 90s and respiratory rate above 35. GENERAL APPEARANCE: The patient is currently lying in bed, responds to painful stimuli, intubated an d sedated. HEENT: Normocephalic, atraumatic. Pupils are equally round and reactive to light. Extraocular move ment cannot be appreciated since the patient is currently intubated and sedated. GCS of 30. NECK: Supple, no JVD. Trachea is midline. Mucous membrane is dry. LUNGS: Patient has crackles that can be appreciated at the anterior lung rangel. Ventilator lung so unds can be appreciated. ABDOMEN: Nontender, nondistended. No ecchymosis, no peritoneal signs can be appreciated. EXTREMITIES: No edema noted. The patient is not responsive to verbal stimuli. Patient withdraws to painful stimuli. NEUROLOGIC: Patient is currently intubated and sedated . SKIN: Cannot appreciate any rashes or ulcerations. Warm, dry, and intact. IMAGING DATA: CTA of the chest showed a 4 cm endobronchial mass obstructing the distal left main blaze m bronchus, proximal left upper lobe bronchus and left lower lobe bronchus resulting in complete loba r atelectasis of the left lower lobe with probable concomitant postobstructive left lower lobe pneumo luis alfredo, likely malignancy; however mucus plugging is not excluded. LABORATORY DATA: WBC 18.9, hemoglobin is 47.0, MCV is 98.0, RDW is 12.3, platelet count is 112. PT is 37.1. INR is 3.8, PTT 58.2, D-dimer is 0.40. ABGs; pH 7.4, pCO2 is 32.3, pO2 of 80.2. Sodium 15 1, potassium 3.9, chloride 120, carbon dioxide 18, anion gap 17, BUN is 51, creatinine is 1.09, gluco se 147, lactic acid of 2.7, troponin less than 0.010. BNP 59. Urinalysis, turbid, large blood, posi tive nitrite positive, leukoesterase. ASSESSMENT AND PLAN: 1. This is a 71-year-old male being admitted for hypoxic respiratory failure likely due to obstructi ve mass and bilateral pneumonia. The patient has been started on vancomycin and Levaquin. We will c ontinue patient on these medications. Patient is currently intubated and sedated, being transferred to the ICU. We will do Lactated Ringer's for fluid resuscitation since the patient came in septic an d Lactated Ringer's has been chosen because the patient's sodium was 151 and chloride 120, so any res uscitated fluid that is chosen has to have a mEq of sodium that is less than 150. We will continue khadijah pacheco on antibiotics. We will continue to manage the patient support. We will continue to manage t he patient supportively and we will possibly get a GI consult for possible PEG tube placement. The khadijah pacheco's prognosis is currently poor. 2. Bilateral lateral mass found on CTA of the chest. Pulmonology has been consulted. Possible biop sy may be needed to diagnose this mass which was found on patient's chest. We will continue antibiot ics for pneumonia that was found on CT of the chest. 3. Metabolic acidosis. Currently, the patient is receiving fluids. Lactic acid will be repeated to follow up the trend. We will continue antibiotics. 4. Sepsis, source is pneumonia. We will continue the patient on antibiotics. 5. History of DVTs. At this point, there are no signs of DVTs. Patient's INR 3.5. We will continu e patient on anticoagulation. We will monitor the patient. 6. Dehydration. We will continue the patient on IV fluids. 7. History of diabetes mellitus. We will start the patient on sliding scale. 8. History of hypertension. We will continue to monitor the patient. 9. Hyperlipidemia. We will treat the patient supportively. 10. DVT/GI prophylaxis. We will do Lovenox therapeutic for deep venous thrombosis prophylaxis, we w ill hold warfarin at this time and for GI prophylaxis with Pepcid.
--- NOTE | 2017-11-02 18:51 | CON ---
DATE OF CONSULTATION: 11/02/2017 Mr. Hernandez is an unfortunate male who apparently had a change in mental status and some respiratory distress, was intubated early this morning. His is an excellent historian, provided most of the history. 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 He has been living in a care environment. He recently has had more of a rattle in his chest, his has noticed. He subsequently was transferred over here and intubated in the ER. Chest x-ray and chest CT angiogram show a retrocardiac alveolar infiltrate. He will open his eyes and move all of his extremities. His provides the history. PAST MEDICAL HISTORY: 1. 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 2. Dementia. 3. Postpolio syndrome, which affecting predominantly his left lower extremity. He is actually highly educated, was a civil engineering project designer. 4. History of hereditary clotting disorder, which his could not recall the name of, but old records suggest that he had an antithrombin III deficiency. He has been on Coumadin, but has been difficult to manage as can be understood based on his variable p.o. intake. 5. History of diverticulosis. 6. Diabetes. 7. History of sleep apnea, not on CPAP. 8. History of ankle surgery. 9. History of knee surgery. SOCIAL HISTORY: He is a former smoker. He was not a daily drinker. FAMILY HISTORY: Positive for vascular disease and clotting disorder. ALLERGIES: Reported to PENICILLIN. REVIEW OF SYSTEMS: Not obtainable. MEDICATIONS: Medications have been reviewed. PHYSICAL EXAMINATION: VITAL SIGNS: His heart is 104, blood pressure 113/81, respiratory rate in the 20s. He will move all of his extremities to stimulation. HEENT: His pupils react. Sclerae is anicteric. NECK: Supple. Appears much older than his age. LUNGS: Remarkable for rhonchi. HEART: Regular rhythm. S1 and S2 are normal. ABDOMEN: Soft and nontender. EXTREMITIES: No clubbing, cyanosis, or edema. LABORATORY AND X-RAY FINDINGS: Chest x-ray and chest CT have been reviewed. White count 18.9, hemoglobin 15.8, platelets 412,000. Sodium 151, potassium 3.9, chloride 120, bicarbonate 18, BUN 51, creatinine 1.01. PH 7.41, CO2 of 32, pO2 of 50. IMPRESSION: 1. Pneumonia. 2. Respiratory failure. 3. Probable aspiration. 4. Swallowing dysfunction .His wifeis not at a point where he is ready to proceed with comfort care, so I have placed a consult with Gastroenterology for percutaneous endoscopic gastrostomy. 5. Hereditary clotting disorder. This would be better managed with Lovenox for now while he is in the hospital. 6. Mild hyperchloremia. 7. Extreme deconditioning. 8. Urinary retention with possible neurogenic bladder. Per my discussion with Dr. Duggan, I be appropriate to go ahead and proceed with a suprapubic catheter while he is here as well. We will be happy to follow with the other physicians caring for him. Critical care time 30 minutes. DINA
[2017-11-02] MEDS: Famotidine/PF 20 mg/2ml Vial SLOW IVP SCH (22:05)
[2017-11-02] MEDS: Enoxaparin Sodium 60 MG/0.6 ML SYRINGE SC SCH (22:05)
[2017-11-03] MEDS: Sodium Chloride 0.45% 1,000 ML IV SCH ×4 (01:39→20:35)
[2017-11-03] MEDS: Vancomycin HCl 750 MG in Sodium Chloride 0.9% 250 ML 250 ML IVPB SCH ×2 (05:13→17:38)
[2017-11-03 05:35] LABS: Prothrombin Time 55.1 SEC (12.0-14.7)
[2017-11-03 05:39] LABS: INR-International Normal Ratio 6.3; PTT 125.7 SEC (22.9-36.1)
[2017-11-03 05:42] LABS: Band 25 % (5-11); Eosinophils 1 % (0-10); Hemoglobin 11.7 g/dL (14.0-18.0); Lymphocytes 18 % (21-51); MDiff Complete? YES; Mean Corpuscular HGB CONC 33.3 g/dL (32.0-36.0); Mean Corpuscular Hemoglobin 33.1 pg (27.0-31.0); Mean Corpuscular Volume 99.7 fL (78.0-98.0); Mean Platelet Volume 7.3 fL (7.4-10.4); Metamyelocyte 1 % (0-0); Monocytes 7 % (0-10); Neutrophil 48 % (42-75); PLT Morphology Comment Appears Adequate; Platelet Count 247 thou/uL (130-400); RBC Distribution Width 12.1 % (11.5-14.5); Red Blood Cell (RBC) Count 3.53 mill/uL (4.70-6.10); White Blood Cell (WBC) Count 11.9 thou/uL (4.8-10.8)
[2017-11-03 06:03] LABS: ALT (SGPT) 15 U/L (8-55); AST (SGOT) 19 U/L (5-34); Albumin 2.8 g/dL (3.4-4.8); Alkaline Phosphatase 54 U/L (40-150); Anion Gap 13 mmol/L (10-20); BUN (Urea Nitrogen) 30 mg/dL (8.4-25.7); Bilirubin, Total 0.7 mg/dL (0.2-1.2); Calc. Creatinine Clearance 96 mL/min (70-130); Calcium 8.2 mg/dL (7.8-10.44); Carbon Dioxide 17 mmol/L (23-31); Chloride 115 mmol/L (98-107); Estimated GFR-MDRD Greater than 90; Globulin 2.6 g/dL (2.4-3.5); Glucose 97 mg/dL (83-110); Potassium 3.4 mmol/L (3.5-5.1); Protein, Total 5.4 g/dL (5.8-8.1); Sodium 142 mmol/L (136-145)
[2017-11-03 07:55] LABS: Actual Bicarbonate (HCO3a) 18.5 mEq/L (22-28); Base Excess (BEa) -3.8 mEq/L (-2.0 to +3.0); Carboxyhemoglobin (COHb) 0.8 gm% (0.0-3.0); Hemoglobin (Hb) 11.6 g/dL (14.0-18.0); O2 Tension (PaO2) 98.2 mmHg (> 70.0); pH, Arterial 7.47 (7.35-7.45)
[2017-11-03 07:56] LABS: Calcium, Ionized 1.16 mmol/L (1.12-1.30); Potassium - ABG Lab 3.15 mmol/L (3.70-5.30); Puncture Site LRA
[2017-11-03] MEDS: Famotidine/PF 20 mg/2ml Vial SLOW IVP SCH ×2 (09:02→21:04)
--- NOTE | 2017-11-03 09:28 | RAD ---
PORTABLE CHEST 1 VIEW: DATE: 11/03/17. TIME: 4:27 a.m. HISTORY: Respiratory failure. FINDINGS: Comparison is made with the exam of previous day (5:43 a.m.). Endotracheal tube tip is just above the level of the que. The tip of the nasogastric tube appears to be in the distal esophagus. The heart size is normal. There is patchy consolidation in the left mid and lower lung zones. The right lung is clear. The report was called over the telephone to the patient's nurse, Sienna Atkinson, at 8:22 a.m. CODE CR POS: [facility]
[2017-11-03] MEDS: Enoxaparin Sodium 60 MG/0.6 ML SYRINGE SC SCH ×2 (09:32→18:26)
--- NOTE | 2017-11-03 15:31 | PRG ---
DATE OF SERVICE: 11/03/2017 SUBJECTIVE: Nicolas Hernandez remains mechanically ventilated. He has propofol for sedation. He is not combative when mechanically ventilated. PHYSICAL EXAMINATION: VITAL SIGNS: His heart rate is 62, respiratory rate 17, blood pressure 105/69. Intake and output is positive 3527. LUNGS: Clear anteriorly. HEART: Regular rhythm. ABDOMEN: Soft. EXTREMITIES: Without asymmetry. Blood cultures and urine cultures are negative. IMAGING DATA: Chest radiograph shows endotracheal tube with the tip of the que. NG tube was in the esophagus and could not be advanced. Hopefully, we will have a PEG placement here in 24-48 hours. IMPRESSION: Respiratory failure associated with extreme intravascular volume depletion as well as aspiration pneumonia. PLAN: 1. PEG placement 2. Urinary retention with possible neurogenic bladder. 3. Hopefully a suprapubic catheter before he is discharged 4. Respiratory failure. Hopefully we can wean him from mechanical ventilation once his PEG is in place. Critical care time is 35 min. MTDD
--- NOTE | 2017-11-03 15:40 | PDOC.PN ---
- Subjective Encounter Start Date: 11/03/17 Encounter Start Time: 15:30 -: non-verbal Subjective: f/u for resp failure on mech ventilation sedated with Propofol. -: Plan for PEG for enteral feeds. Receiving Levaquin/Vanc for likely -: aspiration PNA. - Objective MAR Reviewed: Yes Vital Signs & Weight: Vital Signs (12 hours) Temp Pulse Resp 11/03/17 14:42 63 11/03/17 14:00 17 11/03/17 12:54 66 11/03/17 12:00 99.0 F 19 11/03/17 10:46 68 11/03/17 10:00 22 H 11/03/17 08:00 98.9 F 20 11/03/17 07:42 77 11/03/17 06:00 18 11/03/17 04:00 98.5 F 19 Weight Admit Weight 147 lb Weight 147 lb 4.301 oz Most Recent Monitor Data Heart Rate from ECG 60 NIBP 105/69 NIBP BP-Mean 88 Respiration from ECG 17 SpO2 100 I&O: 11/02/17 11/03/17 11/04/17 06:59 06:59 06:59 Intake Total 4582.1 Output Total 1055 280 Balance 3527.1 -280 Result Diagrams: 11/03/17 04:25 11/03/17 04:25 Additional Labs: Microbiology 11/02/17 04:32 Venous blood - Right Arm Blood Culture - Preliminary Specimen has been received and culture in progress. No Growth to date. 11/02/17 04:19 Urine burnette catheter Urine Culture - Preliminary NO GROWTH AT 12 HOURS 11/02/17 04:17 Venous blood - Right Arm Blood Culture - Preliminary Specimen has been received and culture in progress. No Growth to date. Laboratory Tests 11/02/17 11/02/17 11/02/17 04:17 04:17 04:17 WBC 18.9 H Plt Count 412 H Band Neuts % (Manual) 14 H INR 3.8 Potassium 3.9 Lactic Acid 11/02/17 11/02/17 11/03/17 04:17 14:15 04:25 WBC Plt Count Band Neuts % (Manual) INR 6.3 H* Potassium Lactic Acid 2.7 H 2.0 11/03/17 04:25 WBC Plt Count Band Neuts % (Manual) 25 H INR Potassium Lactic Acid Radiology Reviewed by me: Yes (PCXR - infilatrate in L lung zone, lines/tubes in position) EKG Reviewed by me: Yes (Tele - SR) Phys Exam - Physical Examination sedate on mech ventilation ETT in place HEENT: sclera anicteric, oral pharynx no lesions Neck: no nodes, no JVD, supple, full ROM diminished in bases Respiratory: no wheezing, no rales S1, S2 Cardiovascular: RRR, no significant murmur, no rub, gallop Gastrointestinal: soft, non-tender, no distention, positive bowel sounds Musculoskeletal: no edema, pulses present Skin: normal turgor, cap refill <2 seconds Deviation from normal: Burnette with dark, jim urine Dx/Plan (1) Acute respiratory failure with hypoxia Code(s): J96.01 - ACUTE RESPIRATORY FAILURE WITH HYPOXIA Status: Acute Comment: Continue SIMV and wean if clinically indicated, remains profoundly weak and may not be weanable (2) Aspiration pneumonia Code(s): J69.0 - PNEUMONITIS DUE TO INHALATION OF FOOD AND VOMIT Status: Suspected Qualifiers: Laterality: left Comment: Continue Levaquin/Vancomycin, pulmonary supportive measures, mech ventilation (3) Dysphagia Code(s): R13.10 - DYSPHAGIA, UNSPECIFIED Status: Chronic Qualifiers: Dysphagia type: oropharyngeal phase Qualified Code(s): R13.12 - Dysphagia, oropharyngeal phase Comment: GI consult for consideration of PEG placement for enteral feeds (4) Hypotension Status: Acute Comment: Multifactorial given PNA, dehydration and deconditioning, continue IVF's, minimize sedation with Propofol (5) Post-polio syndrome Code(s): G14 - POSTPOLIO SYNDROME Status: Chronic - Plan continue antibiotics, social welfare clerk, DVT proph w/SCDs continue critical support -: Continue Levaquin/Vancomycin -: GI consult for PEG placement -: Continue IVF's, avoid antihypertensive medications -: AM lab: BMP, CBC * PCXR in am
[2017-11-03 16:52] LABS: Vancomycin, Trough 10.1 ug/mL
[2017-11-03] MEDS ORDERED: Propofol 1,000 MG/100 ML VIAL IV PRN (17:44)
[2017-11-03] MEDS: Vancomycin HCl 1 GM in Premix Bag 1 BAG IVPB SCH (17:57)
[2017-11-03] MEDS: Potassium Chloride 40 MEQ in Sodium Chloride 0.9% 250 ML 250 ML IVPB PRN (23:06)
[2017-11-04] MEDS: Vancomycin HCl 1 GM in Premix Bag 1 BAG IVPB SCH ×2 (05:00→17:15)
--- NOTE | 2017-11-04 05:06 | CON ---
DATE OF CONSULTATION: 11/03/2017 REASON FOR CONSULTATION: Request PEG tube placement. HISTORY OF PRESENT ILLNESS: Mr. Hernandez is a 71-year-old gentleman who was recently in this hospital until 10/18/2017 for hematuria and urinary retention. Apparently, he is on chronic anticoagulation s econdary to a clotting disorder in the past and some mild dementia. He was admitted to the hospital on 11/02/2017, was brought from the hospital with hypoxemia. Apparently, he has a history of postpol io syndrome, DVTs, and possibly a congenital or hereditary coagulation defect. He is on long-term an ticoagulation. He has had previous CVAs. Apparently, he has had shortness of breath a couple days p rior to admission and was transferred [facility] the [facility] and to the hospital concerns the nurses rep ort of possibly of aspiration. The patient was initially placed on BiPAP without improvement, use ac cessory muscles. He was intubated. Dr. Sahni has been seeing the patient at that time as well. In a listed previous history, he has swallowing dysfunction after his prior stroke. The patient is intu bated and history is mostly comes with reviewing the chart and talking with the nurses. PAST MEDICAL HISTORY: 1. Prior CVA with some issues with pharyngeal dysphagia. 2. History of dementia. 3. History of postpolio syndrome, affecting probably his left arm. 4. 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 5. Diverticulosis. 6. Diabetes. 7. Sleep apnea. 8. Ankle surgery. 9. Knee surgery. 10. I performed a colonoscopy in 2014 for screening of remove polyps. FAMILY HISTORY: Coronary artery disease, also some family members with clotting disorders, it is unc lear who they were. SOCIAL HISTORY: The patient is , lives in a [facility] now. He is a former smoker, does no t use alcohol. He is a retired owner professional engineer. ALLERGIES: PENICILLIN. MEDICATIONS AT HOME: Albuterol, Lovenox, Pepcid, fentanyl, levofloxacin, Ativan, magnesium, Levophed p.r.n., , Zofran, Protonix, propofol, vancomycin. OTHER MEDICATIONS: Warfarin, tramadol, vitamin D, pravastatin, Zofran, Omnicef, and aspirin. PHYSICAL EXAMINATION: GENERAL: Patient is resting comfortably in bed. VITAL SIGNS: Pulse 57-63, it was 104-110 when he came in yesterday, blood pressure 116/69, respirato ry rates 18-16, O2 sat 90%. LUNGS: Clear. CARDIOVASCULAR: Regular rate and rhythm without murmurs, rubs, or gallops. ABDOMEN: Soft and nontender. There is no shifting dullness or fluid wave. EXTREMITIES: No clubbing, cyanosis, or edema. LABORATORY AND X-RAY FINDINGS: White count was 18.9 yesterday, today is 11.9; hemoglobin is 11.5, do wn from 15.8; platelet count is 247. INR 6.3, it was 3.8 yesterday. A pH is 7.47 today, bicarbonate 18, pCO2 of 26, pO2 of 98. Sodium 142, potassium 3.4, BUN and creatinine are 30 and 0.6, BUN yester day was 51, albumin is 2.8. On 11/02/2017, the patient had a thoracic chest CT with no evidence of p ulmonary emboli. There was endobronchial mass 4-cm, left distal mainstem bronchus. Malignancy mucus plugging. ASSESSMENT AND PLAN: 1. Pneumonia. The patient is undergoing treatment and evaluation by Pulmonary. Regarding the CT sc an chest findings, bronchoscopy is planned at some point in time. 2. Apparently, problems of urinary retention, there is consideration for suprapubic catheter. 3. Oropharyngeal dysphagia and possible aspiration. It is unclear if there is any overt swallowing studies performed, we can consider PEG tube placement. The patient is going to need to have an INR l ess than 2. We will follow along with you. We will discuss with Dr. Sahni tomorrow.
[2017-11-04 05:35] LABS: Anion Gap 12 mmol/L (10-20); BUN (Urea Nitrogen) 21 mg/dL (8.4-25.7); Calc. Creatinine Clearance 121 mL/min (70-130); Calcium 7.7 mg/dL (7.8-10.44); Carbon Dioxide 15 mmol/L (23-31); Chloride 111 mmol/L (98-107); Estimated GFR-MDRD Greater than 90; Glucose 74 mg/dL (83-110); Potassium 3.7 mmol/L (3.5-5.1); Sodium 134 mmol/L (136-145)
[2017-11-04 05:38] LABS: Band 9 % (5-11); Eosinophils 1 % (0-10); Hemoglobin 10.5 g/dL (14.0-18.0); Lymphocytes 10 % (21-51); MDiff Complete? YES; Mean Corpuscular HGB CONC 32.2 g/dL (32.0-36.0); Mean Corpuscular Hemoglobin 31.6 pg (27.0-31.0); Mean Corpuscular Volume 98.2 fL (78.0-98.0); Mean Platelet Volume 7.4 fL (7.4-10.4); Monocytes 4 % (0-10); Neutrophil 75 % (42-75); Platelet Count 238 thou/uL (130-400); RBC Distribution Width 12.1 % (11.5-14.5); Reactive Lymphocytes 1 % (0-10); Red Blood Cell (RBC) Count 3.31 mill/uL (4.70-6.10); White Blood Cell (WBC) Count 10.4 thou/uL (4.8-10.8)
[2017-11-04] MEDS: Sodium Chloride 0.45% 1,000 ML IV SCH ×4 (06:17→21:08)
[2017-11-04 07:36] LABS: Base Excess (BEa) -4.5 mEq/L (-2.0 to +3.0); CO2 Tension 25.5 mmHg (35.0-45.0); Hemoglobin (Hb) 10.9 g/dL (14.0-18.0); O2 Tension (PaO2) 107.9 mmHg (> 70.0); pH, Arterial 7.46 (7.35-7.45)
[2017-11-04 07:37] LABS: Carboxyhemoglobin (COHb) 0.3 gm% (0.0-3.0)
[2017-11-04 07:38] LABS: Calcium, Ionized 1.11 mmol/L (1.12-1.30); Potassium - ABG Lab 3.51 mmol/L (3.70-5.30); Puncture Site LRA
[2017-11-04 07:39] LABS: ALV-art Gradient 145.425 (0-20)
[2017-11-04] MEDS: Famotidine/PF 20 mg/2ml Vial SLOW IVP SCH ×2 (08:25→21:08)
--- NOTE | 2017-11-04 09:08 | RAD ---
CHEST ONE VIEW: HISTORY: Dyspnea. Followup. COMPARISON: 11/03/2017 FINDINGS: The cardiac silhouette is magnified by projection. The pulmonary vasculature is at the upper limits of normal. Infiltrate throughout the left lung is similar in appearance to the prior study. Slight rightward rotation of the patient. Endotracheal catheter remains in place. Nasogastric tube is no l onger visualized. IMPRESSION: 1. Left lung infiltrate appears stable. 2. Interval removal of nasogastric tube. POS: [facility]
--- NOTE | 2017-11-04 11:35 | CON ---
DATE OF CONSULTATION: 11/03/2017 CONSULTING PHYSICIAN: Kali Sahni M.D. CONSULTED PHYSICIAN: Papo Duggan M.D. REASON FOR CONSULTATION: Consideration for SP tube placement. HISTORY OF PRESENT ILLNESS: Mr. Hernandez is a 71-year-old white male, who is known to me from prior fo r issues regarding urinary retention. When I first met him, he was having overflow incontinence and had a catheter placed with a large amount of urine released. He has failed two voiding trials since then and we had originally made a plan to attempt one more voiding trial before performing urodynamic s. The patient does have a significant amount of comorbidities including a history of stroke being r elatively incapacitated with inability to take care of himself and having swallowing difficulties. Bindu estrada ended up rehospitalized due to aspiration pneumonia and is currently intubated with respiratory dis tress. I was consulted for consideration for an SP tube given his relatively poor prognosis and inab ility to likely make significant recovery from his functional status to be able to use the bathroom o n his own. On my visitation with the patient, he is still intubated, although he is awake. His is at bedside, pretty much all of the history is obtained by the as the patient had been previo usly nonverbal and currently is intubated and unable to speak for himself. ALLERGIES: PENICILLIN. HOME MEDICATIONS: 1. Tramadol. 2. Metformin. 3. Coumadin. 4. Vitamin D3. 5. Senna. 6. Pravastatin. 7. Zofran. 8. Artificial Tears. 9. Omnicef. 10. Throat lozenges. 11. Aspirin. 12. Tylenol. PAST MEDICAL HISTORY: 1. Cerebrovascular accident. 2. Dysphagia. 3. Primarily vascular dementia. 4. Post-polio syndrome. 5. Clotting disorder. 6. Diverticulosis. 7. Diabetes mellitus, type 2. 8. Sleep apnea. 9. Ankle surgery. 10. Urinary retention. PAST SURGICAL HISTORY: 1. Ankle surgery. 2. Knee surgery. FAMILY HISTORY: Significant for coronary artery disease and several other family members with clotti ng disorders. SOCIAL HISTORY: Patient is . He lives in a halfway. He is a former smoker, but is unab le to smoke now. Denies alcohol use or illicit drug use. REVIEW OF SYSTEMS: A 12-point review of systems cannot be obtained as the patient is currently intub ated and unable to speak. PHYSICAL EXAMINATION: VITAL SIGNS: Temperature 98.9, respirations 16 on ventilator, blood pressure 93/59, saturation 100% on BiPAP, heart rate 59. GENERAL: No apparent distress. He is currently having a sedation held. He is awake and looking vikram und, but unable to communicate. He does not really follow commands or make significant eye contact. HEENT: Normocephalic, atraumatic. ET tube in place, secured. Sclerae are nonicteric. Pupils are s ymmetric and round. Trachea is midline. CARDIOVASCULAR: Sinus bradycardia, normal S1 and S2. Symmetric pulses. CHEST: Coarse breath sounds. Symmetric expansion of the lungs, currently ventilated. ABDOMEN: Soft, nontender, nondistended, positive bowel sounds. No obvious organomegaly. GENITOURINARY: Dutta catheter in place with clear yellow urine. EXTREMITIES: No clubbing, cyanosis or edema. The patient is currently in soft restraints. MUSCULOSKELETAL: There are no obvious joint deformities, joint erythema noted. No inflammation in a ny of the joints. Range of motion is not tested. NEUROLOGIC: The patient has known history of upper arm and lower extremity weakness, although the pa tient is not following commands and is unable to perform a proper neurological exam at this time. SKIN: Warm, dry, good turgor, no rashes. LABORATORY AND X-RAY FINDINGS: The full set of labs in the [employer] [facility] system, which I have reviewed. Of note, patient's white count is 10.4 with hemoglobin of 10.5, platelet count is 238. INR is 6.3, c reatinine 0.52, urine culture demonstrates gram negative rods, although culture is currently proceedi ng. There is no growth to date in the blood. IMAGING: No pertinent imaging to review. ASSESSMENT AND PLAN: This is a 71-year-old white male with urinary retention of unknown etiology. I t is unclear whether he has severe benign prostatic hypertrophy versus myogenic bladder failure versu s neurogenic bladder failure from diabetes. Urodynamics would help sort this out, but I agree with Joni Sahni's assessment as this patient has significant comorbidities and given his level of functional decline, he will likely be unable to ever void normally on his own without being grossly incontinent even if he is able to void on his own. That said, long-term catheterization and probably be the bes t thing for this patient, which is best managed via in SP tube. He does have a history of pulling on his catheters and ripping catheter is out and this would be less traumatic and damaging as an SP tub e, then it would be through the urethra. His INR is currently not conducive for placement of a percu taneous puncture without significant bleeding. Therefore, we will wait for his INR to come down, yin ally around 1.5 or less. If permissible by the medicine team, at which point, we can plan him for IR -guided percutaneous nephrostomy tube placement. We will then slowly upsize this to up to either a 2 0 or 22-Peruvian catheter and we will continue that continuous churn buttermaker with changes being done at the nursing ho me. I have discussed this all with the , who is his power of handicapped teacher and she is in agreement th at the SP tube would probably be the best thing for him. I will continue to follow along and once hi s INR is down low enough, we will make arrangements for the SP tube placement. I will continue to fo llow up with him as an outpatient.
[2017-11-04] MEDS: Enoxaparin Sodium 60 MG/0.6 ML SYRINGE SC SCH (12:45)
[2017-11-04 15:35] LABS: INR-International Normal Ratio 1.8; Prothrombin Time 20.9 SEC (12.0-14.7)
--- NOTE | 2017-11-04 17:32 | PDOC.PN ---
- Subjective Encounter Start Date: 11/04/17 Encounter Start Time: 17:15 Subjective: f/u for resp failure on mech vent with bronchoscopy performed today but -: no specific pathology identified. s/p PEG today with TF's starting this pm. - Objective MAR Reviewed: Yes Vital Signs & Weight: Vital Signs (12 hours) Temp Pulse Pulse Resp BP Pulse Ox 11/04/17 17:00 98.9 F 11/04/17 16:00 12 11/04/17 15:15 98.5 F 64 18 133/77 100 11/04/17 15:06 98.2 F 64 18 118/79 99 11/04/17 15:02 72 11/04/17 14:55 97.9 F 61 18 118/79 98 11/04/17 14:36 98.1 F 57 L 17 112/68 99 11/04/17 14:30 98.1 F 58 L 20 112/68 95 11/04/17 14:15 98.4 F 58 L 17 108/68 96 11/04/17 14:00 18 11/04/17 13:14 59 L 11/04/17 13:00 98.6 F 11/04/17 12:00 18 11/04/17 10:38 49 L 11/04/17 10:00 17 11/04/17 08:00 98.4 F 18 100 11/04/17 07:29 70 11/04/17 05:57 12 Weight Admit Weight 147 lb Weight 154 lb 8.705 oz Most Recent Monitor Data Heart Rate from ECG 62 NIBP 117/71 NIBP BP-Mean 77 Respiration from ECG 14 SpO2 98 I&O: 11/03/17 11/04/17 11/05/17 06:59 06:59 06:59 Intake Total 4582.1 4725.1 2883.4 Output Total 6603 209 0670 Balance 3527.1 3850.1 308.4 Result Diagrams: 11/04/17 04:32 11/04/17 04:32 Additional Labs: Microbiology 11/02/17 04:32 Venous blood - Right Arm Blood Culture - Preliminary Specimen has been received and culture in progress. No Growth to date. 11/02/17 04:32 Venous blood - Right Arm Blood Culture - Preliminary NO GROWTH AT 48 HOURS 11/02/17 04:19 Urine burnette catheter Urine Culture - Preliminary Pseudomonas aeruginosa 11/02/17 04:19 Urine burnette catheter Urine Culture - Preliminary NO GROWTH AT 12 HOURS 11/02/17 04:17 Venous blood - Right Arm Blood Culture - Preliminary Specimen has been received and culture in progress. No Growth to date. 11/02/17 04:17 Venous blood - Right Arm Blood Culture - Preliminary NO GROWTH AT 48 HOURS Laboratory Tests 11/02/17 11/02/17 11/02/17 04:17 04:17 04:17 WBC 18.9 H Hgb Plt Count 412 H Band Neuts % (Manual) 14 H INR 3.8 Potassium 3.9 Lactic Acid 11/02/17 11/02/17 11/03/17 04:17 14:15 04:25 WBC Hgb Plt Count Band Neuts % (Manual) INR 6.3 H* Potassium Lactic Acid 2.7 H 2.0 11/03/17 11/03/17 11/04/17 04:25 04:25 04:32 WBC 11.9 H Hgb 11.7 L Plt Count Band Neuts % (Manual) 25 H 9 INR Potassium 3.4 L Lactic Acid 11/04/17 11/04/17 07:21 15:19 WBC Hgb Plt Count Band Neuts % (Manual) INR 4.0 1.8 Potassium Lactic Acid Radiology Reviewed by me: Yes (PCXR - NGT removed) EKG Reviewed by me: Yes (Tele - SR) Phys Exam - Physical Examination somnolent on mech vent, sedation ETT in place HEENT: sclera anicteric, oral pharynx no lesions Neck: no nodes, no JVD, supple, full ROM Respiratory: no wheezing, no rales, no rhonchi, clear to auscultation bilateral S1, S2 Cardiovascular: RRR, no significant murmur, no rub, gallop PEG in place in LUQ Gastrointestinal: soft, no distention, positive bowel sounds mild ankle edema Musculoskeletal: pulses present sedate Skin: normal turgor, cap refill <2 seconds Deviation from normal: Burnette with clear urine, some sediment Dx/Plan (1) Acute respiratory failure with hypoxia Code(s): J96.01 - ACUTE RESPIRATORY FAILURE WITH HYPOXIA Status: Acute Comment: Continue SIMV and wean if clinically indicated, remains profoundly weak and may not be weanable (2) Aspiration pneumonia Code(s): J69.0 - PNEUMONITIS DUE TO INHALATION OF FOOD AND VOMIT Status: Suspected Qualifiers: Laterality: left Comment: Continue Levaquin/Vancomycin, pulmonary supportive measures, mech ventilation (3) Dysphagia Code(s): R13.10 - DYSPHAGIA, UNSPECIFIED Status: Chronic Qualifiers: Dysphagia type: oropharyngeal phase Qualified Code(s): R13.12 - Dysphagia, oropharyngeal phase Comment: s/p PEG placement 11/04/17, start TF's this pm (4) Hypotension Status: Acute Comment: Multifactorial given PNA, dehydration and deconditioning, continue IVF's, minimize sedation with Propofol, improved (5) Post-polio syndrome Code(s): G14 - POSTPOLIO SYNDROME Status: Chronic - Plan continue antibiotics, geriatric social worker, respiratory therapy, DVT proph w/SCDs Continue critical support -: Nutritional support with TF's to start this pm -: Palliative care consult -: Continue Levaquin and Vancomycin -: AM lab: BMP, CBC * .
--- NOTE | 2017-11-05 00:46 | OP ---
DATE OF CONSULTATION: 11/04/2017 GI ENDOSCOPY NOTE SURGEON: Luca Graves M.D. TILE MACHINE OPERATOR SURGEON: None. PROCEDURE: Esophagogastroduodenoscopy with PEG tube placement. INDICATION: 1. Oropharyngeal dysphagia. 2. Propofol IV, administered by ICU nursing staff. 3. The patient is receiving scheduled IV vancomycin and IV levofloxacin on the floor, and this serve s as periprocedural prophylaxis. FINDINGS: After discussion of the risks, benefits and alternatives of the procedure, informed consen t was obtained and verified. Pre-endoscopic cardiopulmonary examination was satisfactory. Timeout w as performed before sedation was achieved. Sedation was achieved with nursing assistants pushing pro pofol in the intensive care unit at bedside. The patient was left in the supine position. A Pentax adult upper endoscope was placed into the oropharynx and passed through the cricopharyngeus under dir ect visualization. The esophageal mucosa appeared normal. The endoscope was advanced into the stoma ch. Forward and retroflexed views of the entire gastric mucosa were obtained. The gastric mucosa ap peared normal. The endoscope was passed through the pylorus and into the first and second portions o f the duodenum. The patient has some moderate erythema and edema, but no erosions or ulcerations, re presenting nonerosive duodenitis. The endoscope was then withdrawn back into the stomach, a suitable site for PEG placement was located in the left upper quadrant using 1:1 pressure and transilluminati on methods. The site was prepped and draped in the sterile fashion and then anesthetized with subcut aneous lidocaine. A 1 cm vertical incision was made at the site and then the introducer needle ibis ter were introduced transcutaneously into the gastric lumen. The wire was passed through the cathete r and grasped with the snare, the wire was then pulled out of the patient's mouth. A 20-Bengali tract ion PEG tube was affixed to the wire and pulled into position without difficulty in the standard [facility] ion. The endoscope was then passed back down into the stomach, where the internal bumper was visuali zed to be in good position. The external bumper was placed at a distance of 3.5 cm. The clamp and e xternal ports were then affixed to the PEG tube and the procedure was completed. The patient tolerat ed the procedure well. There were no immediate post-procedure complications. IMPRESSION: 1. Successful placement of 20-Bengali traction PEG tube to the left upper quadrant, with external bum per at 35 cm. 2. Moderate nonerosive duodenitis. RECOMMENDATIONS: 1. Can use PEG tube for feeds in 4 hours. 2. Can use PEG tube for medications now. 3. Flush tube regularly. 4. We will plan to come by tomorrow to check on the PEG site and likely loosen the external bumper. 5. Proton pump inhibitor for stress prophylaxis.
[2017-11-05] MEDS: Sodium Chloride 0.45% 1,000 ML IV SCH ×4 (01:00→17:58)
[2017-11-05] MEDS: Vancomycin HCl 1 GM in Premix Bag 1 BAG IVPB SCH ×2 (04:48→17:54)
[2017-11-05 05:40] LABS: Vancomycin, Trough 13.6 ug/mL
[2017-11-05 05:50] LABS: Anion Gap 13 mmol/L (10-20); BUN (Urea Nitrogen) 11 mg/dL (8.4-25.7); Calc. Creatinine Clearance 123 mL/min (70-130); Calcium 7.9 mg/dL (7.8-10.44); Carbon Dioxide 18 mmol/L (23-31); Chloride 108 mmol/L (98-107); Estimated GFR-MDRD Greater than 90; Glucose 66 mg/dL (83-110); Potassium 3.3 mmol/L (3.5-5.1); Sodium 136 mmol/L (136-145)
[2017-11-05 06:02] LABS: Band 13 % (5-11); Eosinophils 2 % (0-10); Hemoglobin 10.7 g/dL (14.0-18.0); Lymphocytes 17 % (21-51); MDiff Complete? YES; Mean Corpuscular HGB CONC 34.1 g/dL (32.0-36.0); Mean Corpuscular Hemoglobin 33.2 pg (27.0-31.0); Mean Corpuscular Volume 97.3 fL (78.0-98.0); Mean Platelet Volume 7.9 fL (7.4-10.4); Monocytes 5 % (0-10); Neutrophil 63 % (42-75); Platelet Count 228 thou/uL (130-400); RBC Distribution Width 11.8 % (11.5-14.5); Red Blood Cell (RBC) Count 3.23 mill/uL (4.70-6.10); White Blood Cell (WBC) Count 8.6 thou/uL (4.8-10.8)
[2017-11-05 07:34] LABS: CO2 Tension 25.9 mmHg (35.0-45.0); pH, Arterial 7.46 (7.35-7.45)
[2017-11-05 07:35] LABS: ALV-art Gradient 91.925 (0-20); Carboxyhemoglobin (COHb) 0.8 gm% (0.0-3.0); Hemoglobin (Hb) 10.5 g/dL (14.0-18.0); O2 Tension (PaO2) 89.6 mmHg (> 70.0); Puncture Site LRA
--- NOTE | 2017-11-05 08:31 | RAD ---
ONE VIEW CHEST: COMPARISON: 11/04/17. HISTORY: Respiratory distress. Ventilated patient. FINDINGS: Redomonstration of endotracheal tube. Heart size is within normal limits. There are pleural and par enchymal changes of the left and right lung base. Adequate aeration of the upper lungs. No osseous abnormalities or pneumothorax. IMPRESSION: Worsening pleural and parenchymal changes of the left lung bases. POS: [facility]
--- NOTE | 2017-11-05 09:19 | OP ---
DATE OF SERVICE: 11/04/2017 SUBJECTIVE: Mr. Hernandez has done reasonably well overnight. He has been off sedation. He is awake. He follows commands. OBJECTIVE: VITAL SIGNS: He is afebrile, respiratory rate is 18, oximetry is 100%, heart rate 64, blood pressure 133/77. Intake and output is positive 3850 today, 3527 yesterday. LUNGS: Clear. HEART: Regular rhythm. S1 and S2 are normal. ABDOMEN: Soft and nontender. EXTREMITIES: Without asymmetry. LABORATORY DATA: White count 10.4, hemoglobin 10.5, platelets 238,000. Sodium 134, potassium 3.7, c hloride 111, bicarbonate 15, BUN 21, creatinine 0.52, pH 7.46, CO2 25, PO2 of 107. INR was 4 today, 6.3 yesterday. Lovenox has been held for 2 days. Given 4 units of fresh frozen cheryl sma, hoping we can get a PEG placed today. If we can get a PEG placed airway protection during placement of the PEG, then I believe I can extubate him in the morning. I recommended bronchoscopy because of the CAT scan abnormalities. He was sedated with propofol for the bronchoscopy. The scope was introduced via the endotracheal tub e after consent was obtained from the . Right lower lobe, right middle lobe, right upper lobe, l eft lower lobe and left upper lobe were well visualized. Copious clear secretions were encountered i n the left lower lobe. These were suctioned clear. No endobronchial lesions were seen behind this. We found no endobronchial evidence of a malignant process with his bronchoscopy. He tolerated the p rocedure well. There was no hypoxemia during the procedure. We will continue mechanical ventilation, awaiting PEG and at some point, suprapubic catheter placemen t. Palliative Care will be helping the work through all these complex issues as well. Their in put is appreciated. Critical care time was 30 minutes, independent of the procedure.
[2017-11-05] MEDS: Famotidine/PF 20 mg/2ml Vial SLOW IVP SCH ×2 (10:30→20:59)
--- NOTE | 2017-11-05 10:53 | PRG ---
DATE OF SERVICE: 11/05/2017 SUBJECTIVE: Patient is intubated. He is awake. OBJECTIVE: VITAL SIGNS: Temperature 99.3, pulse presently 53, BP 121/76, respirations 13. GENERAL APPEARANCE: The patient is comfortable in bed. He is awake. He is intubated. He is not si gnificantly interactive at the moment. His eyes are open. HEART: Regular rate and rhythm without murmurs. He is bradycardic. LUNGS: Clear except for some mild upper airway noise. ABDOMEN: Soft and nontender. EXTREMITIES: Warm and dry. LABORATORY DATA: White count 8.6, hemoglobin 10.7, platelets 282. PT 20.9, INR 1.8. ABG: PH 7.46, pCO2 of 25.6, pO2 of 89.6, sodium 133, potassium 3.1, ionized calcium 1.10. BMP shows sodium 136, p otassium 3.3, chloride 108, CO2 is 18, creatinine 0.5. Blood cultures remain negative. Urine cultur e is growing 75,000-100,000 CFU of Pseudomonas, which is highly sensitive. A chest x-ray shows some worsening pleural and parenchymal changes at the left lung base. IMPRESSION AND PLAN: 1. Acute respiratory failure. The etiology of this is likely related to aspiration pneumonia. The patient has been maintained on the ventilator and followed by Pulmonary Critical Care. The patient i s likely at a point where he may be weanable. However, he has a procedure planned for today, so that is being hold off for now. 2. Aspiration pneumonia. The patient remains on vancomycin and Levaquin. Appears to be stable and overall improving. Chest x-ray shows minimal changes this morning. 3. Dysphagia. The patient has a history of postpolio syndrome. He had aspiration, and has a PEG tu be placed. 4. Urinary retention. Plan is for a suprapubic catheter placement today. 5. Nutrition. The patient will have feeds started after his suprapubic catheter was placed. 6. Diabetes mellitus. Blood sugars remain well controlled. If anything, borderline low. 7. Possible urinary tract infection. The patient had some retention and relatively lower colony cou nts of Pseudomonas, which is generally sensitive. It should be adequately covered with current antib iotic regimen. 8. History of multi-infarct dementia. 9. History of coagulation defect. The patient has been on anticoagulation. This has been held for the procedures. 10. Initial concern for possible pulmonary masses, which have not thus far panned out on subsequent x-rays or bronchoscopy. DISPOSITION: Palliative Care consult, as the patient has multiple significant comorbidities.
--- NOTE | 2017-11-05 12:13 | PRG ---
DATE OF SERVICE: 11/05/2017 Mr. Hernandez was awake and nodding appropriately. PHYSICAL EXAMINATION: VITAL SIGNS: Vital signs have been stable. Heart rates in the 50s, blood pressure 121/71, respirato ry rate 17. Intake and output is positive 1614. LUNGS: He has mild rhonchi on exam. HEART: Regular rhythm, no S3. ABDOMEN: Soft and nontender. Chest radiograph shows haziness at the left base. IMPRESSION: 1. Aspiration pneumonia presenting with a retrocardiac infiltrate. 2. Respiratory failure. 3. Extreme dehydration on presentation. 4. Chronic anticoagulation with warfarin for atrial fibrillation. His anticoagulation is on hold fo r procedures. He had a bronchoscopy yesterday, a PEG yesterday and will have a suprapubic catheter p laced today with special procedures. Then we will begin the weaning process. His radiographic progression is consistent with his positive fluid balance and not overly worrisome. His strength reserve is poor. The dementia is the biggest issue, but his is not at a point whe re he wants to make him a DNR or withdraw support. Hopefully, we can wean him. Other problems inclu de multiple CVAs, vascular dementia, swallowing dysfunction, multiple admissions for dehydration, pos tpolio syndrome with a bad left leg most of his life, ? antithrombin III deficiency. Once all of hi s surgeries are complete I would at minimum place him on prophylactic dose Lovenox or one of the oral anticoagulants via his PEG. I am concerned about following in this gentleman with anticoagulations, but there are notes in the past that state that he has an antithrombin III deficiency and probably w ill have to be anticoagulated given his multiple cerebrovascular accidents. We will begin the weaning process today by decreasing his pressure support and his volume ventilation . Critical care time was 30 minutes.
--- NOTE | 2017-11-05 14:31 | CT ---
CT GUIDED SUPRAPUBIC CATHETER PLACEMENT: Date: 11/05/17 HISTORY: Urinary retention TECHNIQUE/FINDINGS: After explaining the procedure and obtaining informed consent, the patient was placed on the CT table in supine position. Approximately 750 mL sterile saline was instilled into the urinary bladder via t he indwelling Dutta catheter. Sterile technique, local anesthesia, CT guidance, and an anterior midline suprapubic approach were us ed to carefully advanced a 14 Ukrainian Dutta-type catheter into the urinary bladder via trocar techniqu e. Retention balloon was carefully inflated with sterile water. Cloudy yellow urine was drained from the bladder. Catheter was secured externally and left draining to gravity. The patient tolerated the procedure well and was returned in unchanged condition. IMPRESSION: Technically successful CT guided suprapubic catheter placement. POS: [facility]
--- NOTE | 2017-11-05 15:37 | PRG ---
DATE OF SERVICE: 11/05/2017 GI INPATIENT DAILY PROGRESS NOTE Mr. Hernandez has been tolerating tube feeds. He has not given any indication of pain. At the PEG tube site, there has been no report of bleeding or exudate. The PEG site looks good. No surrounding shayne thema or bleeding. I did loosen the external bumper to 4.5 cm, which should be a good position for h im. GI will sign off at this time, but please call back anytime with questions or concerns.
--- NOTE | 2017-11-05 17:27 | PRG ---
DATE OF SERVICE: 11/05/2017 SUBJECTIVE: The patient is currently intubated and sedated. He was planning to be extubated today, but due to suprapubic tube placement, his ET tube was left in place until a suprapubic tube could be placed. This has gone uneventfully and he now has an SP tube. He is still not yet been extubated. OBJECTIVE: VITAL SIGNS: Temperature 99.2, pulse 58, respirations 14 on ventilator, blood pressure 100/64, satur ations 100% on ventilator. ABDOMEN: Soft, nontender, nondistended. SP tube is in place, draining clear yellow urine. Dutta ca theter was removed. GENITOURINARY: Otherwise, unremarkable. EXTREMITIES: No clubbing, cyanosis or edema. ASSESSMENT AND PLAN: A 71-year-old white male with urinary retention, which is likely going to be pe rmanent, now with SP tube for permanent urinary drainage. The SP tube will need to stay in place for at least 4 weeks until it is ready for the first change. I will plan to see him back in my office i n 4 weeks for his first SP tube change and we will upsize the catheter progressively as an outpatient . For now, there is nothing further I need to do on this admission, keep Dutta catheter to gravity d rainage and I will sign off unless there are any other concerning or pressing problems. Dr. Ann wi ll be on over the weekend and I will be back on Wednesday. If there are any other issues, please contac t either one of us depending on the timing, otherwise nothing further needs to be done on this admiss ion regarding his urinary retention.
[2017-11-05] MEDS ORDERED: Sodium Chloride 0.45% 1,000 ML IV SCH (18:15)
[2017-11-05 20:09] LABS: Mycoplasma pneumoniae IgG AB 2990 U/mL (0-99); Mycoplasma pneumoniae IgM AB Less than 770 U/mL (0-769)
[2017-11-06 04:20] LABS: Anion Gap 12 mmol/L (10-20); BUN (Urea Nitrogen) 10 mg/dL (8.4-25.7); Calc. Creatinine Clearance 127 mL/min (70-130); Carbon Dioxide 18 mmol/L (23-31); Chloride 109 mmol/L (98-107); Estimated GFR-MDRD Greater than 90; Glucose 95 mg/dL (83-110); Potassium 3.2 mmol/L (3.5-5.1); Sodium 136 mmol/L (136-145)
[2017-11-06 04:21] LABS: Band 5 % (5-11); Eosinophils 2 % (0-10); Hemoglobin 11.9 g/dL (14.0-18.0); Lymphocytes 17 % (21-51); MDiff Complete? YES; Mean Corpuscular Hemoglobin 33.2 pg (27.0-31.0); Mean Corpuscular Volume 97.6 fL (78.0-98.0); Monocytes 3 % (0-10); Neutrophil 73 % (42-75); Platelet Count 227 thou/uL (130-400); RBC Distribution Width 11.9 % (11.5-14.5); Red Blood Cell (RBC) Count 3.59 mill/uL (4.70-6.10); White Blood Cell (WBC) Count 9.8 thou/uL (4.8-10.8)
[2017-11-06] MEDS: Vancomycin HCl 1 GM in Premix Bag 1 BAG IVPB SCH (05:13)
[2017-11-06] MEDS: Potassium Chloride 40 MEQ in Sodium Chloride 0.9% 250 ML 250 ML IVPB PRN (06:47)
[2017-11-06 07:06] LABS: Actual Bicarbonate (HCO3a) 20.8 mEq/L (22-28); Base Excess (BEa) -1.4 mEq/L (-2.0 to +3.0); CO2 Tension 26.5 mmHg (35.0-45.0); Calcium, Ionized 1.09 mmol/L (1.12-1.30); Carboxyhemoglobin (COHb) 0.6 gm% (0.0-3.0); Hemoglobin (Hb) 9.8 g/dL (14.0-18.0); Potassium - ABG Lab 2.89 mmol/L (3.70-5.30); pH, Arterial 7.51 (7.35-7.45)
[2017-11-06 07:07] LABS: ALV-art Gradient 100.885 (0-20); O2 Tension (PaO2) 58.5 mmHg (> 70.0); Puncture Site LRA
[2017-11-06] MEDS: Famotidine/PF 20 mg/2ml Vial SLOW IVP SCH (07:52)
--- NOTE | 2017-11-06 08:00 | RAD ---
PORTABLE CHEST: Date: 11/06/17 PROVIDED CLINICAL HISTORY: Respiratory insufficiency. FINDINGS: Comparison with 11/05/17. Significant interval change with respect to the prior examination is not apparent. IMPRESSION: As above. POS: [facility]
--- NOTE | 2017-11-06 10:16 | PRG ---
DATE OF SERVICE: 11/06/2017 SUBJECTIVE: The patient is intubated and nonverbal. OBJECTIVE: VITAL SIGNS: Temperature 99.1, pulse 67, respirations 11, O2 sat 95% on the ventilator, BP 103/65. GENERAL APPEARANCE: Age appropriate male. He is intubated. He does make eye contact, but does not significantly interact. Otherwise, he is in no distress. HEART: Regular, without murmurs. LUNGS: Clear bilaterally, no wheezes or rales. ABDOMEN: Soft, nondistended. EXTREMITIES: Warm and dry without edema. LABORATORY DATA: White count 9.8, hemoglobin 11.9, platelets 227. Blood gas pH 7.5, pCO2 of 26, pO2 is 58.5. Sodium 136, potassium 3.2, chloride 109, CO2 is 18. IMPRESSION AND PLAN: 1. Acute respiratory failure, likely secondary to aspiration pneumonia. He does also have elevated mycoplasma titers. Critical care pulmonary following. Continue attempts at weaning. However, today the patient is having a significant amount of secretions and suctioning. He is too weak to actually generate a substantial cough. Therefore, holding off in any attempts at extubation at least for todionisio ay. 2. Probable aspiration pneumonia. Continuing with Levaquin. 3. Dysphagia. Patient has a PEG tube placed. 4. Urinary retention, suprapubic catheter placed. 5. Nutrition. He is now receiving PEG tube feeds. 6. Diabetes. Blood sugar is well controlled. 7. Urinary tract infection with Pseudomonas, sensitive to the current antibiotics. 8. History of multi-infarct dementia complicating the ability to wean and extubate. 9. History of coagulation defect. Patient has had challenges with the various procedures with the a nticoagulation that can likely be resumed.
[2017-11-06] MEDS ORDERED: Furosemide 40 MG/4 ML VIAL SLOW IVP SCH (10:45)
--- NOTE | 2017-11-06 10:51 | PRG ---
DATE OF SERVICE: 11/06/2017 SERVICE: Pulmonary Medicine. INTERVAL HISTORY: The patient has extremely copious amounts of secretions. They were thin, but he has an anemic cough. Otherwise, he cannot provide additional elements of the history. He currently denies having any shortness of breath or chest discomfort. He is on a light sedation. He demonstrates fairly extraordinary weakness. PHYSICAL EXAMINATION: VITAL SIGNS: Afebrile, pulse 61, blood pressure 99/67, respirations 22, saturation 100% on 35% FiO2. GENERAL: The patient is intubated. He has light sedation, but is following some simple commands. HEENT: Normocephalic, atraumatic. Sclerae are white. Conjunctivae are pink. Oral mucosa is moist without lesions. LUNGS: Decent air entry. There is extensive rhonchi present. No prolonged expiratory phase is identified. Dependent crackles are noted. HEART: Normal rate and regular. ABDOMEN: Soft, nontender, nondistended. Bowel sounds are positive. MUSCULOSKELETAL: No cyanosis or clubbing. There is 2+ pitting in the bilateral lower extremities. GENITOURINARY: Dutta catheter in place. NEUROLOGIC: Grossly nonfocal. LABORATORY DATA: WBC 9.8, hemoglobin 11.9, platelets 227,000. INR 1.8. PH 7.51, pCO2 26, pO2 58. This corresponds to a saturation of only 92%. Potassium 3.2. Basic metabolic profile is otherwise unremarkable. Urinalysis is significant for pyuria. Mycoplasma pneumoniae titers are positive, but the IgM is negative. Urine culture is growing Pseudomonas, which is a pansensitive organism. Blood cultures x2 remain negative to date. IMAGING: Chest x-ray demonstrates an endotracheal tube, roughly 2 cm above the level of the que. There is a widened carinal angle suggesting left atrial enlargement is present. There is slight rotation here. I do not see any obvious acute cardiopulmonary abnormality, however. ASSESSMENT: 1. Acute hypoxic respiratory failure. 2. Healthcare-associated pneumonia. 3. Urinary tract infection secondary to Pseudomonas. 4. Hypokalemia. 5. Dementia, advanced. 6. Post-polio syndrome. DISCUSSION AND PLAN: We will replace the potassium today. I will interrupt his IV fluids and give him a dose of Lasix as he is significantly volume overloaded. He is pouring frothy secretions out of his lungs at this time. This is the thing that will prevent him from being extubated. We will see if we can get him into a chair twice daily. Sedation will be discontinued. Critical care time: 30 minutes. MTDD
[2017-11-06] MEDS: Famotidine 20 MG TAB PO SCH (20:08)
[2017-11-07 04:54] LABS: Band 7 % (5-11); Eosinophils 2 % (0-10); Hemoglobin 11.7 g/dL (14.0-18.0); Lymphocytes 18 % (21-51); MDiff Complete? YES; Mean Corpuscular HGB CONC 33.9 g/dL (32.0-36.0); Mean Corpuscular Hemoglobin 32.6 pg (27.0-31.0); Mean Corpuscular Volume 96.1 fL (78.0-98.0); Mean Platelet Volume 7.5 fL (7.4-10.4); Monocytes 4 % (0-10); Neutrophil 69 % (42-75); Platelet Count 253 thou/uL (130-400); RBC Distribution Width 12.1 % (11.5-14.5); Red Blood Cell (RBC) Count 3.58 mill/uL (4.70-6.10); White Blood Cell (WBC) Count 11.9 thou/uL (4.8-10.8)
[2017-11-07 04:56] LABS: Anion Gap 12 mmol/L (10-20); BUN (Urea Nitrogen) 11 mg/dL (8.4-25.7); Calc. Creatinine Clearance 112 mL/min (70-130); Calcium 8.3 mg/dL (7.8-10.44); Carbon Dioxide 22 mmol/L (23-31); Chloride 107 mmol/L (98-107); Estimated GFR-MDRD Greater than 90; Glucose 113 mg/dL (83-110); Potassium 3.9 mmol/L (3.5-5.1); Sodium 137 mmol/L (136-145)
[2017-11-07] MEDS ORDERED: Furosemide 40 MG/4 ML VIAL SLOW IVP SCH (06:00)
[2017-11-07] MEDS: Famotidine 20 MG TAB PO SCH ×2 (07:12→19:48)
--- NOTE | 2017-11-07 08:48 | RAD ---
PORTABLE CHEST: Date: 11/07/17 PROVIDED CLINICAL HISTORY: Respiratory insufficiency. FINDINGS: Comparison with 11/06/17. Examination is rotated, limiting assessment. Endotracheal tube is again noted in similar position. Le ft basilar pleural and parenchymal opacity persists. No evidence for pneumothorax. IMPRESSION: As above. POS: CET
[2017-11-07] MEDS: Enoxaparin Sodium 80 MG/0.8 ML SYRINGE SC SCH ×2 (10:41→19:48)
[2017-11-07] MEDS: Scopolamine 1.5 mg/72 hour Patch TD SCH (11:29)
--- NOTE | 2017-11-07 12:10 | PRG ---
DATE OF SERVICE: 11/07/2017 SERVICE: Pulmonary Medicine. INTERVAL HISTORY: The patient is once again having copious amounts of secretions come out of his lungs and his mouth. This prevents us from extubating him. He is not following any commands, but he is awake and he attends. He cannot provide any additional elements of the history. PHYSICAL EXAMINATION: VITAL SIGNS: Afebrile with T-max 99.6, pulse 112, blood pressure 105/86, respirations 27, saturation 94% on 40% FIO2 and a PEEP of 5. GENERAL: The patient is awake and alert. He is in no apparent distress. He is breathing comfortably. HEENT: Normocephalic, atraumatic. Sclerae are white, conjunctivae pink. Oral and nasal mucosa is moist without lesions. LUNGS: Excellent air entry. There is extensive rhonchi present throughout bilateral lung rangel. Crackles are also noted. There is no prolonged expiratory phase or wheezing appreciated. HEART: Tachycardic. Regular. ABDOMEN: Soft, nontender, nondistended. Bowel sounds are positive. MUSCULOSKELETAL: No cyanosis or clubbing. There is much improved pitting, which is still 1+ in the bilateral lower extremities. NEUROLOGIC: Grossly nonfocal. LABORATORY DATA: WBC 11.9, hemoglobin 11.7, platelets 253,000. Basic metabolic profile is essentially unremarkable. The bicarbonate is improved to 22. The creatinine is 0.59 and stable as is the BUN of 11. Urine culture is growing Pseudomonas. Blood culture x2 are unremarkable. IMAGING: Chest x-ray demonstrates endotracheal tube is in good position. There is a left basilar parenchymal opacification. ASSESSMENT: 1. Acute hypoxic respiratory failure. 2. Healthcare-associated pneumonia. 3. Urinary tract infection secondary to Pseudomonas. 4. Hypokalemia, resolved. 5. Dementia, advanced. 6. Post-polio syndrome. DISCUSSION AND PLAN: I will put him on a scopolamine patch. Hopefully, this does not interfere with his mentation. At this point, there is absolutely no way that this patient will be able to handle his current secretions. As such, he will remain intubated. He is a touch dry, intravascularly. As such, I will back off on his Lasix. We will continue our efforts at mobilizing the patient. Critical care time: 30 minutes. [facility] CENTERJoni
--- NOTE | 2017-11-07 14:31 | PDOC.PN ---
- Subjective Encounter Start Date: 11/07/17 Encounter Start Time: 10:10 Intubated. Non-verbal. - Objective Vital Signs & Weight: Vital Signs (12 hours) Temp Pulse Resp BP Pulse Ox 11/07/17 14:00 26 H 11/07/17 12:00 98.9 F 27 H 11/07/17 10:21 112 H 105/86 11/07/17 10:00 27 H 11/07/17 08:00 99.6 F 16 11/07/17 07:20 19 97 11/07/17 06:36 83 93/69 11/07/17 06:00 16 11/07/17 04:00 20 11/07/17 03:00 99.2 F Weight Admit Weight 147 lb Weight 147 lb 4.301 oz Most Recent Monitor Data Heart Rate from ECG 90 NIBP 118/79 NIBP BP-Mean 89 Respiration from ECG 26 SpO2 100 I&O: 11/06/17 11/07/17 11/08/17 06:59 06:59 06:59 Intake Total 2070.2 1991 Output Total 2768 4596 1280 [facility] [place]697.8 -2604 -1254 Result Diagrams: 11/07/17 04:17 11/07/17 04:17 Phys Exam - Physical Examination intubated. up in chair. Respiratory: no wheezing, no rales, clear to auscultation bilateral Scattered ronchi. Upper airway noise. Cardiovascular: RRR, no significant murmur, no rub Gastrointestinal: soft, non-tender, no distention, positive bowel sounds Musculoskeletal: no edema Left foot deformity and atrophy. Dx/Plan (1) Acute respiratory failure with hypoxia Code(s): J96.01 - ACUTE RESPIRATORY FAILURE WITH HYPOXIA Status: Acute Comment: Continue SIMV and wean if clinically indicated, remains profoundly weak and may not be weanable (2) Post-polio syndrome Code(s): G14 - POSTPOLIO SYNDROME Status: Chronic (3) Aspiration pneumonia Code(s): J69.0 - PNEUMONITIS DUE TO INHALATION OF FOOD AND VOMIT Status: Suspected Qualifiers: Laterality: left Comment: Continue Levaquin/Vancomycin, pulmonary supportive measures, mech ventilation (4) UTI (urinary tract infection) Status: Acute Qualifiers: Urinary tract infection type: site unspecified Comment: Had fever and hematuria. Chronic incontinence. Looks like Proteus. Continue Cefinirr po BID , complete 10 total days of abx. (5) Coagulation defect, unspecified Code(s): D68.9 - COAGULATION DEFECT, UNSPECIFIED Status: Chronic Comment: Hereditary coagulopathy requiring coumadin. (6) Diabetes mellitus type 2 in nonobese Code(s): E11.9 - TYPE 2 DIABETES MELLITUS WITHOUT COMPLICATIONS Status: Chronic Comment: well controlled. continue with SSI. (7) Multi-infarct dementia Code(s): F01.50 - VASCULAR DEMENTIA WITHOUT BEHAVIORAL DISTURBANCE Status: Chronic - Plan * Long discussion with patient's yesterday. She understands the situation. * Pulm continuing to work toward extubation, but not ready today secondary to secretions. * Resuming anticoagulation with lovenox. Hold warfarin as there may be additional procedures needed. * Continue Levaquin for UTI and aspiration.
[2017-11-08 03:58] LABS: Band 5 % (5-11); Hemoglobin 11.6 g/dL (14.0-18.0); Lymphocytes 14 % (21-51); MDiff Complete? YES; Mean Corpuscular HGB CONC 34.4 g/dL (32.0-36.0); Mean Corpuscular Hemoglobin 33.4 pg (27.0-31.0); Mean Corpuscular Volume 97.1 fL (78.0-98.0); Mean Platelet Volume 7.2 fL (7.4-10.4); Monocytes 5 % (0-10); Neutrophil 76 % (42-75); Platelet Count 229 thou/uL (130-400); RBC Distribution Width 12.1 % (11.5-14.5); Red Blood Cell (RBC) Count 3.47 mill/uL (4.70-6.10); White Blood Cell (WBC) Count 11.7 thou/uL (4.8-10.8)
[2017-11-08 04:05] LABS: Anion Gap 13 mmol/L (10-20); BUN (Urea Nitrogen) 15 mg/dL (8.4-25.7); Calc. Creatinine Clearance 105 mL/min (70-130); Calcium 8.5 mg/dL (7.8-10.44); Carbon Dioxide 23 mmol/L (23-31); Chloride 104 mmol/L (98-107); Estimated GFR-MDRD Greater than 90; Glucose 118 mg/dL (83-110); Potassium 3.8 mmol/L (3.5-5.1); Sodium 136 mmol/L (136-145)
[2017-11-08 08:22] LABS: Actual Bicarbonate (HCO3a) 23.2 mEq/L (22-28); Base Excess (BEa) 1.1 mEq/L (-2.0 to +3.0); CO2 Tension 28.9 mmHg (35.0-45.0); Calcium, Ionized 1.11 mmol/L (1.12-1.30); Carboxyhemoglobin (COHb) 0.9 gm% (0.0-3.0); Hemoglobin (Hb) 11.4 g/dL (14.0-18.0); O2 Tension (PaO2) 90.2 mmHg (> 70.0); Potassium - ABG Lab 3.91 mmol/L (3.70-5.30); pH, Arterial 7.52 (7.35-7.45)
[2017-11-08 08:30] LABS: Puncture Site RR
[2017-11-08 08:31] LABS: ALV-art Gradient 158.875 (0-20)
[2017-11-08] MEDS: Famotidine 20 MG TAB PO SCH ×2 (09:53→21:32)
[2017-11-08] MEDS: Enoxaparin Sodium 80 MG/0.8 ML SYRINGE SC SCH ×2 (09:53→21:32)
--- NOTE | 2017-11-08 09:57 | RAD ---
PORTABLE CHEST: HISTORY: Respiratory distress. COMPARISON: Prior day's exam. FINDINGS: Endotracheal tube is in satisfactory position. The patient is rotated on this study. Heart size jessie ears borderline. I do not see any definite interval change since the prior exam. Retrocardiac regio n is difficult to assess due to rotation. IMPRESSION: Stable exam. POS: TAHIR
--- NOTE | 2017-11-08 16:17 | PDOC.PN ---
- Subjective Encounter Start Date: 11/08/17 Encounter Start Time: 13:00 Non-verbal. Intubated. - Objective Vital Signs & Weight: Vital Signs (12 hours) Temp Pulse Resp BP 11/08/17 16:00 98.7 F 11/08/17 15:13 68 101/64 11/08/17 14:00 21 H 11/08/17 12:49 72 86/57 L 11/08/17 12:00 98 F 21 H 11/08/17 11:07 79 94/72 11/08/17 10:00 20 11/08/17 08:00 97.8 F 21 H 11/08/17 07:32 89 117/81 11/08/17 06:00 26 H Weight Admit Weight 147 lb Weight 119 lb 7.849 oz Most Recent Monitor Data Heart Rate from ECG 62 NIBP 95/61 NIBP BP-Mean 65 Respiration from ECG 18 SpO2 98 I&O: 11/07/17 11/08/17 11/09/17 06:59 06:59 06:59 Intake Total 1991 2242 15 Output Total 4596 1964 465 Balance -2604 278 -450 Result Diagrams: 11/08/17 03:35 11/08/17 03:35 Phys Exam - Physical Examination Constitutional: NAD Intubated. No distress. Respiratory: no wheezing, no rales, no rhonchi, clear to auscultation bilateral Cardiovascular: RRR, no significant murmur Gastrointestinal: soft, non-tender, no distention, positive bowel sounds Not following commands. Does make eye contact. Dx/Plan (1) Acute respiratory failure with hypoxia Code(s): J96.01 - ACUTE RESPIRATORY FAILURE WITH HYPOXIA Status: Acute Comment: Continue SIMV and wean if clinically indicated, remains profoundly weak and may not be weanable (2) Post-polio syndrome Code(s): G14 - POSTPOLIO SYNDROME Status: Chronic (3) Aspiration pneumonia Code(s): J69.0 - PNEUMONITIS DUE TO INHALATION OF FOOD AND VOMIT Status: Suspected Qualifiers: Laterality: left Comment: Continue Levaquin/Vancomycin, pulmonary supportive measures, mech ventilation (4) UTI (urinary tract infection) Status: Acute Qualifiers: Urinary tract infection type: site unspecified Comment: Had fever and hematuria. Chronic incontinence. Looks like Proteus. Continue Cefinirr po BID , complete 10 total days of abx. (5) Coagulation defect, unspecified Code(s): D68.9 - COAGULATION DEFECT, UNSPECIFIED Status: Chronic Comment: Hereditary coagulopathy requiring coumadin. (6) Diabetes mellitus type 2 in nonobese Code(s): E11.9 - TYPE 2 DIABETES MELLITUS WITHOUT COMPLICATIONS Status: Chronic Comment: well controlled. continue with SSI. (7) Multi-infarct dementia Code(s): F01.50 - VASCULAR DEMENTIA WITHOUT BEHAVIORAL DISTURBANCE Status: Chronic - Plan * .
--- NOTE | 2017-11-08 22:44 | PRG ---
DATE OF SERVICE: 11/08/2017 Nicolas Hernandez was evaluated. He continues to have secretion issues, I really not think he will last v shayne long if he is extubated. His was in the room today when I made rounds. I have asked the rses to relay that I would like to meet with her in the morning. His heart rates in the 60s, blood p ressure has been stable at 99/63, it was hypotensive earlier, but now is most likely because of a neg ative fluid balance for last 2 days. He still has rhonchi on exam which are not in my opinion second lesley to pulmonary edema, more likely just secondary to inability to clear secretions. PHYSICAL EXAMINATION: HEART: Regular rhythm. ABDOMEN: Soft. EXTREMITIES: Without asymmetry. NEUROLOGIC: Nonfocal. LABORATORY DATA: White count 11.7, hemoglobin 11.6, platelets 229. Sodium 136, potassium 3.8, chlor yin 104, bicarbonate 23, BUN 15, creatinine 0.6. Blood gas shows pH 7.5, PCO2 of 28, pO2 of 90. IMPRESSION: Pneumonia with respiratory failure secondary to an inability to clear secretions more th an the pneumonia because of advanced dementia. We will plan and meet with the in the morning. I think withdrawal of care and comfort measures would be appropriate. I do not feel a tracheostomy i s advisable in a man with dementia.
[2017-11-09 05:24] LABS: Band 10 % (5-11); Hemoglobin 10.2 g/dL (14.0-18.0); Lymphocytes 19 % (21-51); MDiff Complete? YES; Mean Corpuscular HGB CONC 32.6 g/dL (32.0-36.0); Mean Corpuscular Volume 98.1 fL (78.0-98.0); Mean Platelet Volume 6.9 fL (7.4-10.4); Monocytes 10 % (0-10); Neutrophil 61 % (42-75); Platelet Count 212 thou/uL (130-400); RBC Distribution Width 12.2 % (11.5-14.5); Red Blood Cell (RBC) Count 3.19 mill/uL (4.70-6.10); White Blood Cell (WBC) Count 8.4 thou/uL (4.8-10.8)
[2017-11-09 05:28] LABS: Anion Gap 11 mmol/L (10-20); BUN (Urea Nitrogen) 16 mg/dL (8.4-25.7); Calc. Creatinine Clearance 91 mL/min (70-130); Calcium 8.1 mg/dL (7.8-10.44); Carbon Dioxide 23 mmol/L (23-31); Chloride 105 mmol/L (98-107); Estimated GFR-MDRD Greater than 90; Glucose 106 mg/dL (83-110); Sodium 135 mmol/L (136-145)
[2017-11-09 07:28] LABS: CO2 Tension 28.8 mmHg (35.0-45.0); pH, Arterial 7.49 (7.35-7.45)
[2017-11-09 07:29] LABS: Actual Bicarbonate (HCO3a) 21.8 mEq/L (22-28); Base Excess (BEa) -0.5 mEq/L (-2.0 to +3.0); Carboxyhemoglobin (COHb) 1.1 gm% (0.0-3.0); Hemoglobin (Hb) 11.6 g/dL (14.0-18.0); O2 Tension (PaO2) 61.6 mmHg (> 70.0); Puncture Site RRA
[2017-11-09] MEDS: Famotidine 20 MG TAB PO SCH ×2 (08:56→20:37)
[2017-11-09] MEDS: Enoxaparin Sodium 80 MG/0.8 ML SYRINGE SC SCH ×2 (08:57→20:45)
--- NOTE | 2017-11-09 09:13 | RAD ---
PORTABLE AP CHEST XRAY: DATE: 11/09/17. HISTORY: On a ventilator. Followup evaluation. COMPARISON: 11/08/17. FINDINGS: Endotracheal tube remains in place and unchanged in position. Cardiac silhouette is magnified by pro jection. There is hazy increased density at the left lung base probably related to small left pleura l effusion and atelectasis. Curvilinear density overlies the left lung, but lung markings are seen l ateral to this region and this likely represents a skin fold. Calcified left hilar lymph node is see n. There is an area of increased density overlying the left upper outer chest, but this is probably superimposition of structures. No other interval change. IMPRESSION: Small left pleural effusion and atelectasis. The chest is otherwise stable with endotracheal tube in place. POS: BERNADETTE
--- NOTE | 2017-11-09 13:51 | PRG ---
DATE OF SERVICE: 11/09/2017 SUBJECTIVE: Mr. Hernandez hemodynamically has been stable. OBJECTIVE: VITAL SIGNS: His temperature is 99, respiratory rate is 21, heart rate is 63, blood pressure 102/58. LUNG EXAM: Improved, though he still has evidence of secretions. On exam, has rhonchi bilaterally. HEART: Regular rhythm. ABDOMEN: Soft and nontender. EXTREMITIES: Without asymmetry or edema. LABORATORY DATA: White count 8.4, hemoglobin 10.2, platelets 212. Sodium 136, potassium 3.8, chloride 104, bicarbonate 23, BUN 15, creatinine 0.6 yesterday; today, is 135 sodium, potassium 4, chloride 105, bicarbonate 23, BUN 16, creatinine 0.56. IMPRESSION: 1. Respiratory failure, associated with retained secretions. 2. Aspiration pneumonia involving his left lower lobe. 3. Swallowing dysfunction, status post PEG. 4. Urinary retention, status post suprapubic catheter placement. I had a long discussion with his by phone this afternoon. I have encouraged her to make him a D NR and she has agreed. It has been explained to her that when we reach a point tomorrow morning wher e we feel comfortable extubating him, we should not reintubate him. She agrees with this plan as zana luz. Hopefully, he will do well enough where with extubation he handles his secretions. He is positive 2560 today, so we may need to give him Lasix prior to extubation. He did drop his blood pressure yesterday, requiring some volume resuscitation; it was likely secondar y to Lasix given over the weekend. We will just reassess him in the morning. Critical care time was 30 minutes.
[2017-11-10 05:24] LABS: Anion Gap 12 mmol/L (10-20); BUN (Urea Nitrogen) 15 mg/dL (8.4-25.7); Calc. Creatinine Clearance 88 mL/min (70-130); Calcium 8.5 mg/dL (7.8-10.44); Carbon Dioxide 22 mmol/L (23-31); Chloride 102 mmol/L (98-107); Estimated GFR-MDRD Greater than 90; Glucose 113 mg/dL (83-110); Potassium 4.2 mmol/L (3.5-5.1); Sodium 132 mmol/L (136-145)
[2017-11-10 05:49] LABS: Band 6 % (5-11); Eosinophils 1 % (0-10); Hemoglobin 10.8 g/dL (14.0-18.0); Lymphocytes 17 % (21-51); MDiff Complete? YES; Mean Corpuscular HGB CONC 32.7 g/dL (32.0-36.0); Mean Corpuscular Volume 97.9 fL (78.0-98.0); Mean Platelet Volume 7.3 fL (7.4-10.4); Monocytes 5 % (0-10); Myelocyte 2 % (0-0); Neutrophil 69 % (42-75); Platelet Count 221 thou/uL (130-400); RBC Distribution Width 12.3 % (11.5-14.5); Red Blood Cell (RBC) Count 3.36 mill/uL (4.70-6.10); White Blood Cell (WBC) Count 9.3 thou/uL (4.8-10.8)
[2017-11-10] MEDS: Famotidine 20 MG TAB PO SCH ×2 (09:56→21:06)
[2017-11-10] MEDS: Enoxaparin Sodium 80 MG/0.8 ML SYRINGE SC SCH ×2 (09:56→21:06)
[2017-11-10] MEDS: Scopolamine 1.5 mg/72 hour Patch TD SCH (12:05)
[2017-11-10 14:25] VITALS: BMI 20.5
--- NOTE | 2017-11-10 19:06 | PRG ---
DATE OF SERVICE: 11/10/2017 SUBJECTIVE: David did well overnight. He is awake and alert this morning, follow commands. He met criteria for weaning and extubation. This was done successfully. OBJECTIVE: LUNGS: He still has mild rhonchi on exam. HEART: Regular rhythm. ABDOMEN: Soft. EXTREMITIES: Without asymmetry. He is tolerating tube feeds. LABORATORY DATA: White count 9.3, hemoglobin 10.8, platelets 221. Sodium 132, potassium 4.2, chloride 102, bicarbonate 22, BUN 15, creatinine 0.58. Intake and outputs, positive 788. IMPRESSION: 1. 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 2. Status post PEG. 3. Status post suprapubic catheter for urinary retention. 4. 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 He has normal renal function. He can probably be switched to Eliquis via his percutaneous endoscopic gastrostomy. 4. DO NOT RESUSCITATE status. I met with his this afternoon. She actually wants to take him home. Eventually, she does not want him going back to a senior care. She is cared for multiple family members in the past. I have discussed this with palliative care and I will help assist in home care issues. I am not sure she can do this by herself, but she might be able to. This will be the big step, but post-extubation he appears to be able to cooperate somewhat , so hopefully will continue to improve.. Critical care time 30 minutes. MTDD
[2017-11-11 06:31] LABS: Anion Gap 13 mmol/L (10-20); BUN (Urea Nitrogen) 13 mg/dL (8.4-25.7); Calc. Creatinine Clearance 113 mL/min (70-130); Calcium 8.7 mg/dL (7.8-10.44); Carbon Dioxide 22 mmol/L (23-31); Chloride 101 mmol/L (98-107); Estimated GFR-MDRD Greater than 90; Glucose 117 mg/dL (83-110); Potassium 4.2 mmol/L (3.5-5.1); Sodium 132 mmol/L (136-145)
[2017-11-11 06:35] LABS: Band 3 % (5-11); Hemoglobin 11.6 g/dL (14.0-18.0); Hypochromia SLIGHT = 6-15 cells (100X) (0-5/hpf); Lymphocytes 8 % (21-51); MDiff Complete? YES; Mean Corpuscular HGB CONC 32.7 g/dL (32.0-36.0); Mean Corpuscular Hemoglobin 31.6 pg (27.0-31.0); Mean Corpuscular Volume 96.6 fL (78.0-98.0); Mean Platelet Volume 7.3 fL (7.4-10.4); Monocytes 2 % (0-10); Neutrophil 87 % (42-75); PLT Morphology Comment Appears Adequate; Platelet Count 250 thou/uL (130-400); RBC Distribution Width 12.3 % (11.5-14.5); Red Blood Cell (RBC) Count 3.65 mill/uL (4.70-6.10); White Blood Cell (WBC) Count 11.5 thou/uL (4.8-10.8)
[2017-11-11] MEDS: Enoxaparin Sodium 80 MG/0.8 ML SYRINGE SC SCH ×2 (09:11→20:43)
[2017-11-11] MEDS: Famotidine 20 MG TAB PO SCH ×2 (09:11→20:42)
--- NOTE | 2017-11-11 09:58 | PDOC.PN ---
- Subjective Encounter Start Date: 11/09/17 Encounter Start Time: 07:00 -: non-verbal PT seen and examined, chart reviewed in its entireety, this is my frist visit with this patient Orally intubated, awake, no distress, no acute event overnight. chuy feeds, no F /c, no N/V/d/C, no CP. ROS not obtainable - Objective Resuscitation Status: Resuscitation Status DNR:Do Not Resuscitate MAR Reviewed: Yes Vital Signs & Weight: Vital Signs (12 hours) Pulse Ox 11/11/17 08:00 93 L Weight Admit Weight 147 lb Weight 155 lb 11.2 oz Most Recent Monitor Data Heart Rate from ECG 64 NIBP 107/64 NIBP BP-Mean 84 Respiration from ECG 23 SpO2 99 I&O: 11/10/17 11/11/17 11/12/17 06:59 06:59 06:59 Intake Total 1943 1449 30 Output Total 1155 2975 Balance 788 -1526 30 Result Diagrams: 11/11/17 05:55 11/11/17 05:55 Additional Labs: Accuchecks 11/11/17 00:58 POC Glucose 112 H Radiology Reviewed by me: Yes EKG Reviewed by me: Yes Phys Exam - Physical Examination Constitutional: NAD HEENT: PERRLA, moist MMs, sclera anicteric, oral pharynx no lesions orall intubated on vent Neck: no nodes, no JVD, supple, full ROM coarse bilateral BS, bibasilar crackles Cardiovascular: RRR, no significant murmur, no rub Gastrointestinal: soft, non-tender, no distention, positive bowel sounds PEG C/D/I Musculoskeletal: edema present Lymphatic: no nodes Skin: no rash, normal turgor, cap refill <2 seconds Dx/Plan - Plan cont current plan of care, continue antibiotics, social worker health services, respiratory therapy, DVT proph w/SCDs * .
--- NOTE | 2017-11-11 10:03 | PDOC.PN ---
- Subjective Encounter Start Date: 11/10/17 Encounter Start Time: 11:00 at bedside. plan to terminally extubate today. unsure how he will fare. Pt is not DNR/DNI No f/c, no N/V/D/c, no CP. ROS not obtainable, no acute overnight events - Objective Resuscitation Status: Resuscitation Status DNR:Do Not Resuscitate MAR Reviewed: Yes Vital Signs & Weight: Vital Signs (12 hours) Pulse Ox 11/11/17 08:00 93 L Weight Admit Weight 147 lb Weight 155 lb 11.2 oz Most Recent Monitor Data Heart Rate from ECG 64 NIBP 107/64 NIBP BP-Mean 84 Respiration from ECG 23 SpO2 99 I&O: 11/10/17 11/11/17 11/12/17 06:59 06:59 06:59 Intake Total 1943 1449 30 Output Total 1155 2975 Balance 788 -1526 30 Result Diagrams: 11/11/17 05:55 11/11/17 05:55 Additional Labs: Accuchecks 11/11/17 00:58 POC Glucose 112 H Phys Exam - Physical Examination Constitutional: NAD HEENT: PERRLA, moist MMs, sclera anicteric, oral pharynx no lesions Neck: no nodes, no JVD, supple, full ROM Respiratory: no wheezing, no rhonchi Cardiovascular: RRR, no significant murmur Gastrointestinal: soft, non-tender, no distention, positive bowel sounds Musculoskeletal: edema present Neurological: non-focal, normal sensation, moves all 4 limbs Lymphatic: no nodes Psychiatric: normal affect Skin: no rash, normal turgor, cap refill <2 seconds Dx/Plan (1) Acute respiratory failure with hypoxia Code(s): J96.01 - ACUTE RESPIRATORY FAILURE WITH HYPOXIA Status: Acute Comment: extubate at lunch today. Pt DNR/DNI (2) Hypotension Status: Acute Comment: Multifactorial given PNA, dehydration and deconditioning, continue IVF's, minimize sedation with Propofol, improved (3) Dysphagia Code(s): R13.10 - DYSPHAGIA, UNSPECIFIED Status: Chronic Qualifiers: Dysphagia type: oropharyngeal phase Qualified Code(s): R13.12 - Dysphagia, oropharyngeal phase Comment: s/p PEG placement 11/04/17, start TF's this pm (4) Post-polio syndrome Code(s): G14 - POSTPOLIO SYNDROME Status: Chronic (5) Aspiration pneumonia Code(s): J69.0 - PNEUMONITIS DUE TO INHALATION OF FOOD AND VOMIT Status: Suspected Qualifiers: Laterality: left Comment: Continue Levaquin/Vancomycin, pulmonary supportive measures, mech ventilation (6) Diabetes mellitus type 2 in nonobese Code(s): E11.9 - TYPE 2 DIABETES MELLITUS WITHOUT COMPLICATIONS Status: Chronic Comment: well controlled. continue with SSI. (7) Multi-infarct dementia Code(s): F01.50 - VASCULAR DEMENTIA WITHOUT BEHAVIORAL DISTURBANCE Status: Chronic (8) Sepsis Code(s): A41.9 - SEPSIS, UNSPECIFIED ORGANISM Status: Resolved Qualifiers: Sepsis type: sepsis due to unspecified organism Qualified Code(s): A41.9 - Sepsis, unspecified organism - Plan * .
[2017-11-11] MEDS ORDERED: Nystatin Powder 15 GM BOT TOP PRN (14:41)
--- NOTE | 2017-11-11 14:43 | PDOC.PN ---
- Subjective Encounter Start Date: 11/11/17 Encounter Start Time: 14:41 -: non-verbal pt extubated, stable, transferred to onc floor. Family meeting with PC, OOH DNR being singed, plan to take pt home with hospice. NoF/C, no N/V/D/C, + apnea, + upper airway rattling ROS not obtainable, pt nonverbal - Objective Resuscitation Status: Resuscitation Status DNR:Do Not Resuscitate MAR Reviewed: Yes Vital Signs & Weight: Vital Signs (12 hours) Pulse Ox 11/11/17 08:00 93 L Weight Admit Weight 147 lb Weight 155 lb 11.2 oz Most Recent Monitor Data Heart Rate from ECG 64 NIBP 107/64 NIBP BP-Mean 84 Respiration from ECG 23 SpO2 99 I&O: 11/10/17 11/11/17 11/12/17 06:59 06:59 06:59 Intake Total 1943 1449 30 Output Total 1155 2975 Balance 788 -1526 30 Result Diagrams: 11/11/17 05:55 11/11/17 05:55 Additional Labs: Accuchecks 11/11/17 00:58 POC Glucose 112 H Phys Exam - Physical Examination Constitutional: NAD HEENT: PERRLA, moist MMs Neck: no nodes, no JVD, supple coarse Bilateral BS, no rales Cardiovascular: RRR, no significant murmur Gastrointestinal: soft, non-tender, no distention, positive bowel sounds PEG intact, clean Musculoskeletal: edema present Lymphatic: no nodes Skin: no rash, normal turgor, cap refill <2 seconds Dx/Plan (1) Acute respiratory failure with hypoxia Code(s): J96.01 - ACUTE RESPIRATORY FAILURE WITH HYPOXIA Status: Acute Comment: extubated at lunch 11.10.2017 Pt DNR/DNI. Making arrangements for hospice at home (2) Hypotension Status: Resolved Qualifiers: Hypotension type: other hypotension type Qualified Code(s): I95.89 - Other hypotension Comment: Multifactorial given PNA, dehydration and deconditioning, continue IVF' s, minimize sedation with Propofol, improved (3) Dysphagia Code(s): R13.10 - DYSPHAGIA, UNSPECIFIED Status: Chronic Qualifiers: Dysphagia type: oropharyngeal phase Qualified Code(s): R13.12 - Dysphagia, oropharyngeal phase Comment: s/p PEG placement 9/13/18, on TFs (4) Post-polio syndrome Code(s): G14 - POSTPOLIO SYNDROME Status: Chronic (5) Aspiration pneumonia Code(s): J69.0 - PNEUMONITIS DUE TO INHALATION OF FOOD AND VOMIT Status: Resolved Qualifiers: Laterality: left Comment: Continue Levaquin/Vancomycin, pulmonary supportive measures, mech ventilation (6) Diabetes mellitus type 2 in nonobese Code(s): E11.9 - TYPE 2 DIABETES MELLITUS WITHOUT COMPLICATIONS Status: Chronic Comment: well controlled. continue with SSI. (7) Multi-infarct dementia Code(s): F01.50 - VASCULAR DEMENTIA WITHOUT BEHAVIORAL DISTURBANCE Status: Chronic Qualifiers: Dementia behavioral disturbance: without behavioral disturbance Qualified Code(s): F01.50 - Vascular dementia without behavioral disturbance (8) Sepsis Code(s): A41.9 - SEPSIS, UNSPECIFIED ORGANISM Status: Resolved Qualifiers: Sepsis type: sepsis due to unspecified organism Qualified Code(s): A41.9 - Sepsis, unspecified organism - Plan cont current plan of care, plan discussed w/ family, continue antibiotics, school social worker * .
[2017-11-11] MEDS ORDERED: Scopolamine 1.5 mg/72 hour Patch TD SCH (14:45)
[2017-11-12 04:51] LABS: Anion Gap 11 mmol/L (10-20); BUN (Urea Nitrogen) 16 mg/dL (8.4-25.7); Calc. Creatinine Clearance 111 mL/min (70-130); Calcium 9.2 mg/dL (7.8-10.44); Carbon Dioxide 26 mmol/L (23-31); Chloride 102 mmol/L (98-107); Estimated GFR-MDRD Greater than 90; Glucose 110 mg/dL (83-110); Potassium 4.4 mmol/L (3.5-5.1); Sodium 135 mmol/L (136-145)
[2017-11-12 04:58] LABS: Band 4 % (5-11); Eosinophils 2 % (0-10); Hemoglobin 12.2 g/dL (14.0-18.0); Lymphocytes 17 % (21-51); MDiff Complete? YES; Mean Corpuscular HGB CONC 33.2 g/dL (32.0-36.0); Mean Corpuscular Hemoglobin 32.1 pg (27.0-31.0); Mean Corpuscular Volume 96.6 fL (78.0-98.0); Metamyelocyte 1 % (0-0); Monocytes 6 % (0-10); Neutrophil 70 % (42-75); PLT Morphology Comment Appears Adequate; Platelet Count 274 thou/uL (130-400); RBC Distribution Width 12.4 % (11.5-14.5); Red Blood Cell (RBC) Count 3.79 mill/uL (4.70-6.10); White Blood Cell (WBC) Count 10.9 thou/uL (4.8-10.8)
[2017-11-12 07:51] VITALS: BP 117/66; TEMP 97.8
[2017-11-12] MEDS: Enoxaparin Sodium 80 MG/0.8 ML SYRINGE SC SCH (09:29)
[2017-11-12] MEDS: Famotidine 20 MG TAB PO SCH (09:30)
--- NOTE | 2017-11-12 09:56 | DIS ---
PRIMARY CARE PHYSICIAN: Dr. Ha Hsu DATE OF ADMISSION: 11/02/2017 DATE OF DISCHARGE: 11/12/2017 DISCHARGE DIAGNOSES: 1. Severe dementia. 2. Acute hypoxic respiratory failure. 3. Aspiration pneumonia. 4. Oropharyngeal dysphagia. 5. Postpolio syndrome. 6. Diabetes mellitus type 2. 7. Hypertension, essential. 8. Hyperlipidemia, unspecified. 9. History of obstructive sleep apnea. 10. 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 11. Aphasia secondary to his dementia. 12. Left lower extremity debility and weakness secondary to post-polio syndrome. CONSULTATIONS: 1. Pulmonary Critical Care, Dr. Kali Sahni 2. Gastroenterology, Dr. Raul Escalante on 11/03/2017. 3. Urology, Dr. Duggan on 11/04/2017. PROCEDURES: 1. Bronchoscopy by Dr. Kali Sahni on 11/04/2017. 2. Percutaneous gastrostomy tube placement with an EGD by Dr. Luca Graves 11/04/2017. HISTORY AND PHYSICAL: Mr. Hernandez is a 71-year-old male with the [facility]. He was lethargic and does not speak, so a lot o f the history was taken from the chart. He was seen initially in the emergency department where he w as found to have a white count of 18.9, a 4 cm endobronchial mass obstructing the distal left main st em bronchus. Lactic acid 2.7. He was started on vancomycin in the Emergency Department, he was intu bated and sedated. We were called for admission. HOSPITAL COURSE: The patient was seen and examined by Dr. Sanchez. He was transferred to the ICU. H e was continued on IV fluids and Pulmonary Critical Care was consulted. The patient remained intubated. He was seen by Pulmonary Critical Care for minor adjustments. He re mained fairly stable until 11/04/2017, he underwent PEG tube placement and bronchoscopy. Per Dr. Vahid boykin's notes, noted copious clear secretions and no endobronchial lesions. No evidence of malignancy. He was maintained on antibiotics and respiratory support. He was seen by Dr. Duggan on the as well for SP tube placement and he was agreeable. This was ultimately placed by Radiology on 018. The patient was given antibiotics and ventilatory support, unable to wean from 11/04/2017 through . After a long discussion with the family and palliative care consultation it was ultimately decided to make the patient DNR/DNI and terminally extubate on 11/10/2017. He was extubated at 11:00 a.m. on 11/09/2017, transferred to the oncology floor for comfort care. Ar rangements for hospice with [facility] to go home and arrangements were made and set up for today 11/12/2017. PHYSICAL EXAMINATION: The patient was seen and examined on the day of discharge. Discharge plan and disposition was discussed with the family and the patient at the bedside. DISCHARGE MEDICATIONS: Home medications were continued, these will likely be discontinued completely and adjusted by hospice on admission there. DISCHARGE ACTIVITY: The patient is bedridden. DISCHARGE CARE: PEG tube and SP tube placement. DISCHARGE CONDITION: Poor. Patient is under hospice care for comfort. DISPOSITION: The patient will be discharged to home via a nonemergent EMS transport. Follow up with hospice and ask the family to contact primary care physician. I will send a copy of this note as we ll.
--- NOTE | 2017-11-13 13:17 | EKG ---
Test Reason : SEPSIS
--- NOTE | 2017-11-15 15:04 | CT ---
CT GUIDED SUPRAPUBIC CATHETER PLACEMENT: Date: 11/05/17 HISTORY: Urinary retention TECHNIQUE/FINDINGS: After explaining the procedure and obtaining informed consent, the patient was placed on the CT table in supine position. Approximately 750 mL sterile saline was instilled into the urinary bladder via t he indwelling Dutta catheter. Sterile technique, local anesthesia, CT guidance, and an anterior midline suprapubic approach were us ed to carefully advanced a 14 [place] Dutta-type catheter into the urinary bladder via trocar techniqu e. Retention balloon was carefully inflated with sterile water. Cloudy yellow urine was drained from the bladder. Catheter was secured externally and left draining to gravity. The patient tolerated the procedure well and was returned in unchanged condition. IMPRESSION: Technically successful CT guided suprapubic catheter placement.
== END 2017-11-12 13:55 | disposition hospice, home (50) | DRG 870 ==
LOC: ERS 04:10 → EEVIPCON 06:09 → CCU 06:09 → ERS 06:42 → ONC 11-10 15:45
PROVIDERS: ADMIT Internal Medicine; ATTEND Internal Medicine
PROC: 5A1955Z Respiratory Ventilation, Greater than 96 Consecutive Hours (ICD-10-PCS; principal; 2017-11-04)
PROC: 0BH17EZ Insertion of Endotracheal Airway into Trachea, Via Natural or Artificial Opening (ICD-10-PCS; 2017-11-04)
PROC: 0DH63UZ Insertion of Feeding Device into Stomach, Percutaneous Approach (ICD-10-PCS; 2017-11-05)
PROC: 0BJ08ZZ Inspection of Tracheobronchial Tree, Via Natural or Artificial Opening Endoscopic (ICD-10-PCS; 2017-11-05)
PROC: 0DJ08ZZ Inspection of Upper Intestinal Tract, Via Natural or Artificial Opening Endoscopic (ICD-10-PCS; 2017-11-05)
DX: A41.9 Sepsis, unspecified organism (principal); J69.0 Pneumonitis due to inhalation of food and vomit; J96.01 Acute respiratory failure with hypoxia; D68.9 Coagulation defect, unspecified; R47.01 Aphasia; E87.5 Hyperkalemia; F03.90 Unspecified dementia, unspecified severity, without behavioral disturbance, psychotic disturbance, mood disturbance, and anxiety; R13.10 Dysphagia, unspecified; G14 Postpolio syndrome; E11.9 Type 2 diabetes mellitus without complications; I10 Essential (primary) hypertension; E78.5 Hyperlipidemia, unspecified; G47.33 Obstructive sleep apnea (adult) (pediatric); Z86.73 Personal history of transient ischemic attack (TIA), and cerebral infarction without residual deficits; R53.1 Weakness; Z66 Do not resuscitate; Z79.899 Other long term (current) drug therapy; Z79.82 Long term (current) use of aspirin; N39.490 Overflow incontinence; R33.9 Retention of urine, unspecified; Z88.0 Allergy status to penicillin; Z87.891 Personal history of nicotine dependence; K57.90 Diverticulosis of intestine, part unspecified, without perforation or abscess without bleeding; N31.9 Neuromuscular dysfunction of bladder, unspecified; E87.8 Other disorders of electrolyte and fluid balance, not elsewhere classified
CPT/HCPCS: 31500; 36415; 36416; 36430; 51102; 71045; 71275; 77002; 80048; 80053; 80202; 81003; 81015; 82553; 82805; 83605; 83880; 84484; 85007; 85025; 85027; 85379; 85610; 85730; 86850; 86900; 86901; 87040; 87077; 87086; 87186; 89220; 93005; 94002; 94003; 94760; 96361; 96365; 96374; 96375; A4216; C2627; J1650; J1940; J1956; J2704; J2930; J3370; J3480; J7050; J7620; P9059; S0028